=== PATIENT | female | born 1980 | race Caucasian/White ===

== ENCOUNTER 2016-06-16 16:42 | Outpatient (CLI) | payer MEDICAID ==
--- NOTE | 2016-06-16 17:29 | Non Stress Test Report ---
Non Stress Test Datetime Report Generated by CPN: 06/16/2016 17:28 DEMOGRAPHIC Test Number: 1 EGA NST: 35.2 INDICATION Indication for Study: Ordered by Provider MONITORING Monitor Explained: Monitor Explained; Test Explained; Patient Verbalized Understanding Time on Monitor: 06/16/2016 16:56 Time off Monitor: 06/16/2016 17:20 NST Duration: 24 NST INTERVENTIONS NST Interventions: PO Hydration; Reposition Patient Physician Notified NST: Dr. Sharif BABY A: [id number] BABY A Movement : Present Contraction Frequency : None FHR Baseline : 120 Accelerations : 15X15 Decelerations : None Variability : Moderate 6-25bpm NST Review: Meets Criteria for Reactive NST NST Review and Verified By : Juve Banks RNC NST Results: Reactive NST REPORT Report Trigger: Send Report
--- NOTE | 2016-06-22 09:18 | Antepartum Discharge Summary ---
Antepartum DC Datetime Report Generated by CPN: 06/22/2016 09:18 DIET/ACTIVITY/RESTRICTIONS Diet: Regular (06/16/2016 17:25:Kourtney Vitrano, RN) Activity: Normal Activity (06/16/2016 17:25:Kourtney Vitrano, RN) TEACHING/INSTRUCTIONS/REFERRALS Instructions Given To: Patient (06/16/2016 17:25:Kourtney Vitrano, RN) Instructions Understood: Patient Verbalized Understanding; Support Person Verbalized Understanding (06/16/2016 17:25:Kourtney Fitzpatrick RN) Referrals: None (06/16/2016 17:25:Kourtney Fitzpatrick RN) Educational Materials- Other: Kick Counts (06/16/2016 17:25:Kourtney Fitzpatrick RN) DISCHARGE INFORMATION Discharged AMA: No (06/16/2016 17:25:Kourtney Fitzpatrick RN) Discharge Date/Time: 06/16/2016 17:23 (06/16/2016 17:25:Kourtney Fitzpatrick RN) Discharged To: Home (06/16/2016 17:25:Kourtney Fitzpatrick RN) Discharge Provider Name: Dr. Sharif (06/16/2016 17:25:Kourtney Fitzpatrick RN) Discharge Method: Ambulatory (06/16/2016 17:25:Kourtney Fitzpatrick RN) Condition: Stable (06/16/2016 17:25:Kourtney Fitzpatrick RN) FOLLOW UP INFORMATION Follow Up With: [facility] (06/16/2016 17:25:Kourtney Fitzpatrick RN) Follow Up On: As Scheduled (06/16/2016 17:25:Kourtney Fitzpatrick RN) Follow Up Phone Number: [facility] - (06/16/2016 17:25:Kourtney Fitzpatrick RN)
--- NOTE | 2016-06-22 09:19 | L&D General Admission ---
General Admit Datetime Report Generated by CPN: 06/22/2016 09:19 INFORMATION Patient Age: 36 (06/16/2016 16:42:QS system process) EDC: 07/19/2016 00:00 (06/16/2016 16:59:Kourtney Fitzpatrick RN) : 3 (06/16/2016 16:59:Kourtney Fitzpatrick RN) Para: 1 (06/16/2016 16:59:Kourtney Fitzpatrick RN) Term: 1 (06/16/2016 16:59:Kourtney Fitzpatrick RN) : 0 (06/16/2016 16:59:Kourtney Fitzpatrick RN) Spontaneous Abortions: 1 (06/16/2016 16:59:Kourtney Fitzpatrick RN) Induced Abortions: 0 (06/16/2016 16:59:Kourtney Fitzpatrick RN) Livin (06/16/2016 16:59:Kourtney Fitzpatrick RN) Cesareans: 0 (06/16/2016 16:59:Kourtney Fitzpatrick RN) VBACs: 0 (06/16/2016 16:59:Kourtney Fitzpatrick RN) Ectopic: 0 (06/16/2016 16:59:Kourtneyjulia Fitzpatrick RN) Multiple Births: 0 (06/16/2016 16:59:Kourtney Fitzpatrick RN) Baby, Number in Womb: 1 (06/16/2016 16:59:Kourtney Fitzpatrick RN) CARE Primary Porcelain Enamel Laborer: [facility] (06/16/2016 16:59:Kourtney Fitzpatrick RN) Month of 1st Visit: 12/2015 (06/16/2016 16:59:Kourtney Fitzpatrick RN) Adequate Care: Yes (06/16/2016 16:59:Kourtney Fitzpatrick RN) Prepregnancy Weight (lb): 129 (06/16/2016 16:59:Kourtney Fitzpatrick RN) Prepregnancy Weight (kg): 58.6 (06/16/2016 16:59:QS system process) Height (in): 65 (06/16/2016 17:00:QS system process) ALLERGIES Medication Allergy: No (06/16/2016 16:59:Kourtney Fitzpatrick RN) Medication Allergies: No Known Allergies (06/16/2016) (06/16/2016 16:59:QS system process) Latex Allergy: No Latex Allergies (06/16/2016 16:59:Kourtney Fitzpatrick RN) Food Allergies: N/A (06/16/2016 16:59:Kourtney Fitzpatrick RN) Environmental Allergies: N/A (06/16/2016 16:59:Kourtney Fitzpatrick RN) COMMUNICATION Primary Language: Burundian (06/16/2016 16:59:Kourtney Fitzpatrick RN) Medical Tx Preferred Language: Burundian (06/16/2016 16:59:Kourtney Fitzpatrick RN) Communication Barrier(s): None (06/16/2016 16:59:Kourtney Fitzpatrick RN) DEMOGRAPHICS Address: [address] [place] [id number] (06/16/2016 16:42:QS system process) Zipcode: [address] (06/16/2016 16:42:QS system process) Home (06/16/2016 16:42:QS system process) N: [phone] (06/16/2016 16:42:QS system process) Next of Kin Name: TALIA PALACIOS (06/16/2016 16:42:QS system process) Next of Kin (06/16/2016 16:42:QS system process) Next of Kin Relationship: MO (06/16/2016 16:42:QS system process) Date of : 1980 (06/16/2016 16:42:QS system process) Marital Status: (06/16/2016 16:42:QS system process) Sex: Female (06/16/2016 16:42:QS system process) Race: (06/16/2016 16:42:QS system process) Ethnicity: Non- or (06/16/2016 16:42:QS system process) Episcopal: None (06/16/2016 16:42:QS system process) DRUG AND ALCOHOL USE Alcohol: No (06/16/2016 16:59:Kourtney Fitzpatrick RN) Cigarettes: Current Everyday Smoker. [phone] (06/16/2016 16:59:Kourtney Fitzpatrick RN) Marijuana: No (06/16/2016 16:59:Kourtney Fitzpatrick RN) Cocaine: No (06/16/2016 16:59:Kourtney Fitzpatrick RN) Other Illicit Drugs: No (06/16/2016 16:59:Kourtney Fitzpatrick RN) Other Illicit Drug Comments: Hx heroine use; On Subutex (06/16/2016 16:59:Kourtney Silvaano, RN) VACCINE HISTORY Influenza Vaccine: Yes (06/16/2016 16:59:Kourtney Fitzpatrick RN) Pneumococcal Vaccine: No (06/16/2016 16:59:Kourtney Fitzpatrick RN) Tetanus Vaccine: Yes (06/16/2016 16:59:Kourtney Fitzpatrick RN) Tdap Vaccine: Yes (06/16/2016 16:59:Kourtney Fitzpatrick RN) Hepatitis B Vaccine: Yes (06/16/2016 16:59:Kourtney Fitzpatrick RN) Maintenance Coordinator: [facility] (06/16/2016 16:59:Kourtney Fitzpatrick RN) Feeding Preference: Formula (06/16/2016 16:59:Kourtney Fitzpatrick RN) Circumcision: N/A (06/16/2016 16:59:Kourtney Fitzpatrick RN) Classes Attended: No (06/16/2016 16:59:Kourtney Fitzpatrick RN) Tubal Ligation: No (06/16/2016 16:59:Kourtney Fitzpatrick RN) Tubal Authorization Signed: N/A (06/16/2016 16:59:Kourtney Fitzpatrick RN) Consent: N/A (06/16/2016 16:59:Kourtney Fitzpatrick RN) Consent Signed: N/A (06/16/2016 16:59:Kourtney Fitzpatrick RN) Pain Management Plans: Epidural (06/16/2016 16:59:Kourtney Fitzpatrick RN) Plans for Labor and Delivery: None (06/16/2016 16:59:Kourtney Fitzpatrick RN) Support Person: Jaleel Garcia (06/16/2016 16:59:Kourtney Fitzpatrick RN) Support Person Relationship: (06/16/2016 16:59:Kourtney Fitzpatrick RN) Cultural/Spritual Practice: No (06/16/2016 16:59:Kourtney Fitzpatrick RN) Spir/Cult Dietary Needs: No (06/16/2016 16:59:Kourtney Fitzpatrick RN) LIVING SITUATION/DISCHARGE PLAN Living Arrangements: House (06/16/2016 16:59:Kourtney Fitzpatrick RN) Adequate Access to:: Electric; Heat; Refrigeration; Plumbing/Running water; Phone; Transportation (06/16/2016 16:59:Kourtney Fitzpatrick RN) WIC Program: Yes (06/16/2016 16:59:Kourtney Fitzpatrick RN) Discharge Assistant Speech Language Pathologist Person: (06/16/2016 16:59:Kourtney Fitzpatrick RN) Person to Help after Discharge: (06/16/2016 16:59:Kourtney Fitzpatrick RN) Currently Using Commun Resources: Yes (06/16/2016 16:59:Kourtney Fitzpatrick RN) Specify Current Resource Used: WIC, Medicaid (06/16/2016 16:59:Kourtney Fitzpatrick RN) Outside Agency/Energy Manager: No (06/16/2016 16:59:Kourtney Fitzpatrick RN) Car Seat for Discharge: Yes (06/16/2016 16:59:Kourtney Fitzpatrick RN) Adoption Requested: No (06/16/2016 16:59:Kourtney Fitzpatrick RN) Pt Contact w/ Post : N/A (06/16/2016 16:59:Kourtney Fitzpatrick RN) LABS RPR/VDRL: Nonreactive (06/16/2016 16:59:Kourtney Fitzpatrick RN) HIV Exposure Test: Negative (06/16/2016 16:59:Kourtney Fitzpatrick RN) OB/PREVIOUS HISTORY History of Previous : No (06/16/2016 16:59:Kourtney Fitzpatrick RN) History of Gestational Diabetes: No (06/16/2016 16:59:Kourtney Fitzpatrick RN) History of PIH: No (06/16/2016 16:59:Kourtney Fitzpatrick RN) History of Incompetent Cervix: No (06/16/2016 16:59:Kourtney Fitzpatrick RN) History of Placenta Previa/Abrup: No (06/16/2016 16:59:Kourtney Fitzpatrick RN) History of Macrosomia: No (06/16/2016 16:59:Kourtney Fitzpatrick RN) History of IUGR: No (06/16/2016 16:59:Kourtney Fitzpatrick RN) History of Hemorrhage: No (06/16/2016 16:59:Kourtney Fitzpatrick RN) History of Loss/Stillborn: No (06/16/2016 16:59:Kourtney Fitzpatrick RN) History of : No (06/16/2016 16:59:Kourtney Fitzpatrick RN) History of D (Rh) Sensitization: No (06/16/2016 16:59:Kourtney Fitzpatrick RN) History Recurrent Loss/Stillborn: No (06/16/2016 16:59:Kourtney Fitzpatrick RN) History Depression/PP Depression: No (06/16/2016 16:59:Kourtney Fitzpatrick RN) History of Uterine Anomaly/LOU: No (06/16/2016 16:59:Kourtney Fitzpatrick RN) History of Infertility: No (06/16/2016 16:59:Kourtney Fitzpatrick RN) History of ART Treatment: No (06/16/2016 16:59:Kourtney Fitzpatrick RN) History of LOU: No (06/16/2016 16:59:Kourtney Fitzpatrick RN) Comments Obstetrical History: G1: 2008 SAB 8 weeks G2: 2010 baby boy, 41 weeks, 24 hours labor, 7 lb 9 oz G3: Current; Marginal cord insertion, AMA, Subutex; Sees MFM (06/16/2016 16:59:Kourtney Fitzpatrick RN) MEDICAL HISTORY Med Hx Diabetes: No (06/16/2016 16:59:Kourtney Fitzpatrick RN) Med Hx Hypertension: No (06/16/2016 16:59:Kourtney Fitzpatrick RN) Med Hx Heart Disease: No (06/16/2016 16:59:Kourtney Fitzpatrick RN) Med Hx Autoimmune Disorder: No (06/16/2016 16:59:Kourtney Fitzpatrick RN) Med Hx Kidney Disease/UTI: No (06/16/2016 16:59:Korutney Fitzpatrick RN) Med Hx Neurologic/Epilepsy: No (06/16/2016 16:59:Kourtney Fitzpatrick RN) Med Hx Psychiatric Disorders: Yes (06/16/2016 16:59:Kourtney Fitzpatrick RN) Med Hx Hepatitis/Liver Disease: No (06/16/2016 16:59:Kourtney Fitzpatrick RN) Med Hx Varicosities/Phlebitis: No (06/16/2016 16:59:Kourtney Fitzpatrick RN) Med Hx Thyroid Dysfunction: No (06/16/2016 16:59:Kourtney Fitzpatrick RN) Med Hx Trauma/Violence: No (06/16/2016 16:59:Kourtney Fitzpatrick RN) Med Hx Blood Transfusion: No (06/16/2016 16:59:Kourtney Fitzpatrick RN) Med Hx Pulmonary (Asthma,TB): No (06/16/2016 16:59:Kourtney Fitzpatrick RN) Med Hx Breast: No (06/16/2016 16:59:Kourtney Fitzpatrick RN) Med Hx HEAD WAITER Surgery: No (06/16/2016 16:59:Kourtney Fitzpatrick RN) Med Hx Hospitalization/Surgery: No (06/16/2016 16:59:Kourtney Fitzpatrick RN) Med Hx Anesthetic Complications: No (06/16/2016 16:59:Kourtney Fitzpatrick RN) Med Hx Abnormal Pap Smear: Yes (06/16/2016 16:59:Kourtney Fitzpatrick RN) Other Medical Diseases: No (06/16/2016 16:59:Kourtney Fitzpatrick RN) Med Hx Significant Family Hx: No (06/16/2016 16:59:Kourtney Fitzpatrick RN) Details of Med/Surg Hx: Psychiatric: Anxiety/Depression, Hx heroine abuse Abnormal Pap: 1999, Treated with colpo (06/16/2016 16:59:Kourtney Fitpzatrick RN) INFECTIOUS HISTORY Inf Hx Gonorrhea: No (06/16/2016 16:59:Kourtney Fitzpatrick RN) Inf Hx Chlamydia: No (06/16/2016 16:59:Kourtney Fitzpatrick RN) Inf Hx Syphilis: No (06/16/2016 16:59:Kourtney Fitzpatrick RN) Inf Hx HIV/AIDS: No (06/16/2016 16:59:Kourtney Fitzpatrick RN) Inf Hx Human Papilloma Virus: No (06/16/2016 16:59:Kourtney Fitzpatrick RN) Inf Hx Pt/Partner Genital Herpes: No (06/16/2016 16:59:Kourtney Fitzpatrick RN) Inf Hx Tuberculosis/Exposure: No (06/16/2016 16:59:Kourtney Fitzpatrick RN) Inf Hx Hepatitis B,C: No (06/16/2016 16:59:Kourtney Fitzpatrick RN) Inf Hx Rash or Viral Illness: No (06/16/2016 16:59:Kourtney Fitzpatrick RN) GENETIC HISTORY Gen Hx Age >=35 at ADRIENNE: No (06/16/2016 16:59:Kourtney Fitzpatrick RN) Gen Hx Thalassemia: No (06/16/2016 16:59:Kourtney Fitzpatrick RN) Gen Hx Congenital Heart Defect: No (06/16/2016 16:59:Kourtney Fitzpatrick RN) Gen Hx Neural Tube Defect: No (06/16/2016 16:59:Kourtney Fitzpatrick RN) Gen Hx Down's Syndrome: No (06/16/2016 16:59:Kourtney Fitzpatrick RN) Gen Hx Raheem-Sachs: No (06/16/2016 16:59:Kourtney Fitzpatrick RN) Gen Hx Diann: No (06/16/2016 16:59:Kourtney Fitzpatrick RN) Gen Hx Familial Dysautonomia: No (06/16/2016 16:59:Kourtney Fitzpatrick RN) Gen Hx Sickle Cell Disease/Trait: No (06/16/2016 16:59:Kourtney Fitzpatrick RN) Gen Hx Hemophilia/Blood Disorder: No (06/16/2016 16:59:Kourtney Fitzpatrick RN) Gen Hx Muscular Dystrophy: No (06/16/2016 16:59:Kourtney Fitzpatrick RN) Gen Hx Cystic Fibrosis: No (06/16/2016 16:59:Kourtney Fitzpatrick RN) Gen Hx Huntingtons Chorea: No (06/16/2016 16:59:Kourtney Fitzpatrick RN) Gen Hx Mental Retardation/Autism: No (06/16/2016 16:59:Kourtney Fitzpatrick RN) Gen Hx Tested for Fragile X: No (06/16/2016 16:59:Kourtney Fitzpatrick RN) Gen Hx Other Inher/Chromosomal: No (06/16/2016 16:59:Kourtney Fitzpatrick RN) Gen Hx Maternal Metabolic DO: No (06/16/2016 16:59:Kourtney Fitzpatrick RN) Gen Hx Pt Father or FOB Defect: No (06/16/2016 16:59:Kourtney Fitzpatrick RN) Gen Hx Other Genetic History: No (06/16/2016 16:59:Kourtney Fitzpatrick RN) Gen Hx Drugs/Meds since LMP: No (06/16/2016 16:59:Kourtney Fitzpatrick RN)
--- NOTE | 2016-06-22 09:19 | L&D Flow Sheet ---
LD Flowsheet Datetime Report Generated by CPN: 06/22/2016 09:19 Datetime: 06/16/2016 17:23 Patient Care Comments: Pt ambulating off unit in stable condition (Kourtney Vitrano, RN) Datetime: 06/16/2016 17:21 Teaching Instructional Method: Verbal; Written; Patient Instructed; Verbalized Understanding (Kourtney Ricardoano, RN) Teaching Comments: Reviewed and signed kick counts. Pt encouraged to return for regular contractions, leaking, bleeding, decreased FM. Encouraged to keep f/u appointments. Pt verbalized understanding and denied needs. (Kourtney Vitrano, RN) Datetime: 06/16/2016 17:20 Uterine Activity Monitor Mode: External; Palpation (Kourtney Vitrano, RN) Frequency (min): None (Kourtney Vitrano, RN) Resting Tone (Palpate): Relaxed (Kourtney Vitrano, RN) Contraction Comments: Pt denies (Kourtney Vitrano, RN) Assessment A Monitor Mode: External US (Kourtney Vitrano, RN) FHR Baseline Rate : 120 (Kourtney Vitrano, RN) Variability: Moderate 6-25 bpm (Kourtney Vitrano, RN) Accelerations: 15X15 (Kourtney Vitrano, RN) Decelerations: None (Kourtney Vitrano, RN) Communication Communication: Provider Orders Received; Call/Page Placed to Provider (Kourtney Ricardoano, RN) Communication Comments: Call to Dr. Sharif. Report given to include EGA 35.2, , pt history, pt to unit for repeat NST. Reviewed toco tracing, FHTs, pt denies complaints. Orders received to d/c pt home for reactive NST. (Kourtney Vitrano, RN) Datetime: 06/16/2016 17:04 Monitor Interventions for FHR: Ultrasound Adjusted (Kourtney Vitrano, RN) Datetime: 06/16/2016 16:56 Vital Signs NBP Sys/Juany/Mean (mmHg): 94 (QS system process) : 44 (QS system process) : 64 (QS system process) Pulse: 70 (QS system process) Respirations: 16 (Kourtney Vitrano, RN) Patient Care Patient Position/Activity: Right Lateral (Kourtney Fitzpatrick RN) I/O Interventions: Popsicle; Clear Liquids Given (Kourtney Fitzpatrick RN) Teaching Instructional Method: Verbal; Patient Instructed; Verbalized Understanding (Kourtney Fitzpatrick RN) Plan of Care: Plan of Care Discussed (Kourtney Fitzpatrick RN) Unit Routine: [place] to Room; Call Banks; Bed; Monitoring; Safety/Fall Risk Prevention; Bathroom Privileges (Kourtney Fitzpatrick RN) Datetime: 06/16/2016 16:55 Patient Care Comments: Pt to unit from [facility] for repeat NST. Denies concerns or complaints at this time. (Kourtney Fitzpatrick RN)
--- NOTE | 2016-06-22 09:20 | L&D Discharge Summary ---
OB Discharge Summary Datetime Report Generated by CPN: 06/22/2016 09:19 DISCHARGE DIAGNOSIS Diagnosis/Symptoms: Other Diagnoses/Symptoms Other: Reactive NST Reviewed and signed kick counts. Pt encouraged to return for regular contractions, leaking, bleeding, decreased FM. Encouraged to keep f/u appointments. Pt verbalized understanding and denied needs. Gestation: 35.2 Number of Babies in Womb: 1 Parity: 1 DIET/ACTIVITY/RESTRICTIONS Diet: Regular Activity: Normal Activity TEACHING/INSTRUCTIONS/REFERRALS Instructions Given To: Patient Instructions Understood: Patient Verbalized Understanding; Support Person Verbalized Understanding Referrals: None Educational Materials- Other: Kick Counts DISCHARGE INFORMATION Discharged AMA: No Discharge Date/Time: 06/16/2016 17:23 Discharged To: Home Discharge Provider Name: Dr. Sharif Discharge Method: Ambulatory Condition: Stable FOLLOW UP INFORMATION Follow Up With: [facility] Follow Up On: As Scheduled Follow Up Phone Number: [facility] -
== END 2016-06-16 17:23 | disposition home or self-care (01) ==
LOC: LC 16:42
PROVIDERS: ATTEND Obstetrics & Gynecology
PROC: 4A1HXCZ Monitoring of Products of Conception, Cardiac Rate, External Approach (ICD-10-PCS; principal; 2016-06-16)
DX: Z34.93 Encounter for supervision of normal pregnancy, unspecified, third trimester (principal); Z3A.37 37 weeks gestation of pregnancy
CPT/HCPCS: 59025

== ENCOUNTER 2016-07-02 10:30 | Outpatient (CLI) | payer MEDICAID | END 2016-07-02 11:03 | disposition home or self-care (01) | LOC: LC 10:30 | PROVIDERS: ATTEND Obstetrics & Gynecology | PROC: 4A1HXCZ Monitoring of Products of Conception, Cardiac Rate, External Approach (ICD-10-PCS; principal; 2016-07-02) | DX: O09.523 Supervision of elderly multigravida, third trimester (principal); Z3A.38 38 weeks gestation of pregnancy | CPT/HCPCS: 59025 ==

== ENCOUNTER 2016-07-09 14:59 | Outpatient (CLI) | payer MEDICAID ==
--- NOTE | 2016-07-09 15:48 | Non Stress Test Report ---
Non Stress Test Datetime Report Generated by CPN: 07/09/2016 15:48 DEMOGRAPHIC Test Number: 3 EGA NST: 38.4 EGA NST: 37.4 INDICATION Indication for Study: Ordered by Provider Indication for Study: Ordered by Provider MONITORING Monitor Explained: Monitor Explained; Test Explained; Patient Verbalized Understanding Monitor Explained: Monitor Explained; Test Explained; Patient Verbalized Understanding Time on Monitor: 07/09/2016 15:09 Time on Monitor: 07/02/2016 10:39 Time off Monitor: 07/09/2016 15:41 Time off Monitor: 07/02/2016 10:59 NST Duration: 32 NST Duration: 20 NST INTERVENTIONS NST Interventions: PO Hydration; Reposition Patient NST Interventions: PO Hydration; Reposition Patient Physician Notified NST: SusieMAIA Chavez Physician Notified NST: Fritz Cristina BABY A: [id number] BABY A Movement : Present Movement : Present Contraction Frequency : Occasional Contraction Frequency : irr FHR Baseline : 130 FHR Baseline : 135 Accelerations : 15X15 Accelerations : 15X15 Decelerations : None Decelerations : None Variability : Moderate 6-25bpm Variability : Moderate 6-25bpm NST Review: Meets Criteria for Reactive NST NST Review: Meets Criteria for Reactive NST NST Review and Verified By : Coby Humphries RN NST Results: Reactive NST Results: Reactive NST REPORT Report Trigger: Send Report
== END 2016-07-09 15:43 | disposition home or self-care (01) ==
LOC: LC 14:59
PROVIDERS: ATTEND Obstetrics & Gynecology
PROC: 4A1HXCZ Monitoring of Products of Conception, Cardiac Rate, External Approach (ICD-10-PCS; principal; 2016-07-09)
DX: O09.523 Supervision of elderly multigravida, third trimester (principal); Z3A.38 38 weeks gestation of pregnancy
CPT/HCPCS: 59025

== ENCOUNTER 2016-07-20 18:12 | Inpatient (IN) | payer MEDICAID ==
[2016-07-20 18:48] LABS: APPEARANCE,URINE CLOUDY; BILIRUBIN,URINE NEGATIVE (NEGATIVE); GLUCOSE, URINE NEGATIVE (NEGATIVE); KETONES,URINE NEGATIVE (NEGATIVE); LEUKOCYTE ESTERASE,URINE NEGATIVE (NEGATIVE); NITRITE,URINE NEGATIVE (NEGATIVE); PROTEIN,URINE NEGATIVE (NEGATIVE); URINE SPECIFIC GRAVITY 1.015; UROBILINOGEN,URINE NEGATIVE mg/dL (<2.0)
[2016-07-20 19:04] LABS: URINE BARBITURATES SCREEN NEGATIVE; URINE METHADONE SCREEN NEGATIVE; URINE OPIATES LOW NEGATIVE; URINE PHENCYCLIDINE SCREEN NEGATIVE
[2016-07-20 19:40] LABS: ABSOLUTE BASOPHILS # (AUTO) 0.1 10^3/uL (0.0-0.2); ABSOLUTE EOSINOPHILS # (AUTO) 0.1 10^3/uL (0.0-0.6); ABSOLUTE LYMPHOCYTES (AUTO) 2.8 10^3/uL (0.5-4.7); ABSOLUTE MONOCYTES (AUTO) 0.7 10^3/uL (0.1-1.4); ABSOLUTE NEUT (AUTO) 9.6 10^3/uL (1.7-8.2); BASOPHILS % (AUTO) 0.4 % (0-2); HEMOGLOBIN 10.7 g/dL (12.0-15.5); HGB HCT DIFFERENCE 0.1; MEAN CORPUSCULAR HEMOGLOBIN 28.8 pg (27.0-33.4); MEAN CORPUSCULAR HGB CONC 33.4 g/dL (32.0-36.0); MEAN CORPUSCULAR VOLUME 86 fl (80-97); MONOCYTES % (AUTO) 5.6 % (3-13); RED CELL DISTRIBUTION WIDTH 13.5 % (11.5-14.0); WHITE BLOOD COUNT 13.3 10^3/uL (4.0-10.5)
--- NOTE | 2016-07-20 20:00 | L&D Flow Sheet ---
LD Flowsheet Datetime Report Generated by CPN: 07/20/2016 20:00 Datetime: 07/20/2016 19:53 Level of Consciousness: Fully Conscious ([facility], ) DTR's/Clonus: DTRs 2+; No Clonus ([facility], RN) Headache: Denies ([facility], ) Breath Sounds, Left: Clear and Equal ([facility], ) Breath Sounds, Right: Clear and Equal ([facility], RN) Nausea/Vomiting: Denies ([facility], ) RUQ Epigastric Pain: Denies ([facility], ) Datetime: 07/20/2016 19:33 NBP Sys/Juany/Mean (mmHg): 107 (QS system process) : 58 (QS system process) : 77 (QS system process) Pulse: 97 (QS system process) LaborFlag: Labor (QS system process) Datetime: 07/20/2016 19:18 Patient Care Comments: Report given to Peña Bahena . Care relinquished at this time. (Adilia Marlesliefka, RN) Datetime: 07/20/2016 19:13 IV/Blood Work: Labs Drawn (Adilia Marhefka, RN) Datetime: 07/20/2016 19:00 Monitor Mode: External; Palpation (Adilia Marhefka, RN) Frequency (min): 3-6 (Adilia Marhefka, RN) Quality: Mild (Adilia Marhefka, RN) Duration (sec): 60-170 (Adilia Marhefka, RN) Resting Tone (Palpate): Relaxed (Adilia Marhefka, RN) Monitor Mode: External US (Adilia Marhefka, RN) FHR Baseline Rate : 135 (Adilia Marhefka, RN) FHR Baseline Changes: No Baseline Change (Adilia Marhefka, RN) Variability: Moderate 6-25 bpm (Adilia Marhefka, RN) Accelerations: 15X15 (Adilia Marhefka, RN) Decelerations: None (Adilia Marhefka, RN) Datetime: 07/20/2016 18:47 Unit Routine: Consents Signed (Adilia Marhefka, RN) Datetime: 07/20/2016 18:43 Pain Scale: 0 (Adilia Humphries RN) Pain Presence: None/Denies (Adilia Humphries RN) Pain Type: N/A (Adilia Humphries RN) Pain Goal: 0 (Adilia Humphries RN) Pain Relief Measures: Comfort Measures (Adilia Humphries RN) Membrane Status: Intact (Adilia Humphries RN) Vaginal Bleeding: None (Adilia Humphries RN) Level of Consciousness: Fully Conscious (Adilia Humphries RN) DTR's/Clonus: DTRs 2+; No Clonus (Adilia Humphries RN) Headache: Denies (Adilia Humphries RN) Breath Sounds, Left: Clear and Equal (Adilia Humphries RN) Breath Sounds, Right: Clear and Equal (Adilia Humphries RN) Nausea/Vomiting: Denies (Adilia Humphries RN) RUQ Epigastric Pain: Denies (Adilia Humphries RN) LaborFlag: Labor (QS system process) Datetime: 07/20/2016 18:39 Patient Position/Activity: Left Lateral; Semi-Fowlers (Adilia Humphries RN) Instructional Method: Verbal; Patient Instructed; Verbalized Understanding (Adilia Humphries RN) Plan of Care: Plan of Care Discussed (Adilia Humphries RN) Unit Routine: [place] to Room; Call Banks; Bed; Visiting Policy; Waiting Areas; Unit Personnel; Monitoring; Bathroom Privileges (Adilia Humphries RN) Labor/Induction: Labor Stages; Cervical Ripening (Adilia Humphries RN)
[2016-07-20] MEDS ORDERED: DINOPROSTONE 10 MG VAGINAL INSERT.SR PV ONE (20:12)
[2016-07-20] MEDS ORDERED: DINOPROSTONE 10 MG VAGINAL INSERT.SR ONE (20:14)
[2016-07-20] MEDS ORDERED: MAG HYDROX/AL HYDROX/SIMETH SUSP 30 ML UDCUP PO PRN (20:52)
[2016-07-20] MEDS ORDERED: ACETAMINOPHEN 325 MG TABLET PO PRN (20:52)
[2016-07-20] MEDS ORDERED: ZOLPIDEM TARTRATE 5 MG TABLET PO SCH (22:00)
--- NOTE | 2016-07-20 22:00 | L&D Flow Sheet ---
LD Flowsheet Datetime Report Generated by CPN: 07/20/2016 22:00 Datetime: 07/20/2016 21:33 NBP Sys/Juany/Mean (mmHg): 121 (QS system process) : 71 (QS system process) : 90 (QS system process) Pulse: 71 (QS system process) LaborFlag: Labor (QS system process) Datetime: 07/20/2016 21:03 NBP Sys/Juany/Mean (mmHg): 123 (QS system process) : 56 (QS system process) : 81 (QS system process) Pulse: 77 (QS system process) LaborFlag: Labor (QS system process) Datetime: 07/20/2016 20:33 NBP Sys/Juany/Mean (mmHg): 114 (QS system process) : 55 (QS system process) : 76 (QS system process) Pulse: 74 (QS system process) LaborFlag: Labor (QS system process) Datetime: 07/20/2016 20:30 Monitor Mode: External; Palpation (Sue Bahena RN) Frequency (min): 5-9 (Sue Bahena RN) Quality: Mild (Sue Bahena, RN) Duration (sec): 80-120 (Sue Bahena, RN) Resting Tone (Palpate): Relaxed (Sue Bahena RN) Monitor Mode: External US (Sue Bahena, RN) FHR Baseline Rate : 125 (Sue Bahena, RN) Variability: Moderate 6-25 bpm (Sue Bahena, RN) Accelerations: 15X15 (Sue Bahena, RN) Decelerations: None (Sue Bahena, RN) Datetime: 07/20/2016 20:21 Cervical Ripening Agents: Cervidil (Sue Field, RN) Datetime: 07/20/2016 20:20 Dilatation (cm): 1.0 (Sue Bahena, RN) Effacement (%): 50 (Sue Bahena, RN) Station: -3 (Sue Bahena, RN) Exam by: RN (Sue Bahena, RN) Datetime: 07/20/2016 20:07 I/O Interventions: Up to BR (Sue Field, RN) Datetime: 07/20/2016 20:02 NBP Sys/Juany/Mean (mmHg): 121 (QS system process) : 77 (QS system process) : 94 (QS system process) Pulse: 75 (QS system process) LaborFlag: Labor (QS system process) Datetime: 07/20/2016 20:00 Monitor Mode: External; Palpation (Sue Bahena RN) Frequency (min): 5-10.5 (Sue Bahena RN) Quality: Mild (Sue Bahena RN) Duration (sec): 100-140 (Sue Bahena RN) Resting Tone (Palpate): Relaxed (Sue Bahena RN) Monitor Mode: External US (Sue Bahena RN) FHR Baseline Rate : 125 (Sue Bahena RN) Variability: Moderate 6-25 bpm (Sue Bahena RN) Accelerations: 15X15 (Sue Bahena RN) Decelerations: None (Seu Bahena RN)
[2016-07-20] MEDS ORDERED: ZOLPIDEM TARTRATE 5 MG TABLET ONE (22:28)
[2016-07-21] MEDS: RINGERS SOLUTION,LACTATED 1,000 ML IV PRN ×3 (00:01→10:17)
[2016-07-21] MEDS ORDERED: NICOTINE 7 MG/24 HR PATCH.TD24 ONE (00:52)
--- NOTE | 2016-07-21 08:01 | L&D Flow Sheet ---
LD Flowsheet Datetime Report Generated by CPN: 07/21/2016 08:00 Datetime: 07/21/2016 07:43 Level of Consciousness: Fully Conscious (Adilia Marhefka, RN) DTR's/Clonus: DTRs 2+; No Clonus (Adilia Marhefka, RN) Headache: Denies (Adilia Marhefka, RN) Breath Sounds, Left: Clear and Equal (Adilia Marhefka, RN) Breath Sounds, Right: Clear and Equal (Adilia Marhefka, RN) Nausea/Vomiting: Denies (Adilia Marhefka, RN) RUQ Epigastric Pain: Denies (Adilia Marhefka, RN) Datetime: 07/21/2016 07:30 Monitor Mode: External (Adilia Marhefka, RN) Frequency (min): 2-5 (Adilia Marhefka, RN) Quality: Mild (Adilia Marhefka, RN) Duration (sec): 40-110 (Adilia Marhefka, RN) Resting Tone (Palpate): Relaxed (Adilia Marhefka, RN) Monitor Mode: External US (Adilia Marhefka, RN) FHR Baseline Rate : 130 (Adilia Marhefka, RN) FHR Baseline Changes: No Baseline Change (Adilia Marhefka, RN) Variability: Moderate 6-25 bpm (Adilia Marhefka, RN) Accelerations: 15X15 (Adilia Marhefka, RN) Decelerations: None (Adilia Marhefka, RN) Datetime: 07/21/2016 07:29 NBP Sys/Juany/Mean (mmHg): 107 (QS system process) : 59 (QS system process) : 75 (QS system process) Pulse: 67 (QS system process) Respirations: 16 (Adilia Humphries RN) Pain Scale: 0 (Adilia Humphries RN) Pain Presence: None/Denies (Adilia Humphries RN) Pain Type: N/A (Adilia Humphries RN) Pain Goal: 0 (Adilia Humphries RN) Pain Relief Measures: Comfort Measures (Adilia Marhefka, RN) LaborFlag: Labor (QS system process) Datetime: 07/21/2016 07:20 I/O Interventions: Up to BR (Adilia Marhefka, RN) Datetime: 07/21/2016 07:19 Communication: Report Given to @ R.Marhefka, RN; care relinquished at this time. (Sue Field, RN) Datetime: 07/21/2016 07:00 Monitor Mode: External (Adilia Marhefka, RN) Frequency (min): 2-6 (Adilia Marhefka, RN) Quality: Mild (Adilia Marhefka, RN) Duration (sec): 40-80 (Adilia Marhefka, RN) Resting Tone (Palpate): Relaxed (Adilia Marhefka, RN) Monitor Mode: External US (Adilia Marhefka, RN) FHR Baseline Rate : 135 (Adilia Marhefka, RN) FHR Baseline Changes: No Baseline Change (Adilia Marhefka, RN) Variability: Moderate 6-25 bpm (Adilia Marhefka, RN) Accelerations: 15X15 (Adilia Marhefka, RN) Decelerations: None (Adilia Marhefka, RN) Datetime: 07/21/2016 06:30 Monitor Mode: External; Palpation (Sue Field, RN) Frequency (min): 2-6 (Sue Field, RN) Quality: Mild/Moderate (Sue Field, RN) Duration (sec): 50-80 (Sue Field, RN) Resting Tone (Palpate): Relaxed (Sue Field, RN) Monitor Mode: External US (Sue Field, RN) FHR Baseline Rate : 130 (Sue Field, RN) Variability: Moderate 6-25 bpm (Sue Field, RN) Accelerations: 10X10 (Sue Field, RN) Decelerations: Variable (Sue Field, RN) Datetime: 07/21/2016 06:02 I/O Interventions: Up to BR (Sue Field, RN) Datetime: 07/21/2016 06:00 Monitor Mode: External; Palpation (Sue Field, RN) Frequency (min): 2-4 (Sue Field, RN) Quality: Mild/Moderate (Sue Field, RN) Duration (sec): 60-70 (Sue Field, RN) Resting Tone (Palpate): Relaxed (Sue Field, RN) Monitor Mode: External US (Sue Field, RN) FHR Baseline Rate : 130 (Sue Field, RN) Variability: Moderate 6-25 bpm (Sue Field, RN) Accelerations: 15X15 (Sue Field, RN) Decelerations: Variable (Sue Field, RN) Datetime: 07/21/2016 05:30 Monitor Mode: External; Palpation (Sue Field, RN) Frequency (min): 2-6 (Sue Field, RN) Quality: Mild/Moderate (Sue Field, RN) Duration (sec): 60-70 (Sue Field, RN) Resting Tone (Palpate): Relaxed (Sue Field, RN) Monitor Mode: External US (Sue Field, RN) FHR Baseline Rate : 125 (Sue Field, RN) Variability: Moderate 6-25 bpm (Sue Field, RN) Accelerations: 15X15 (Sue Field, RN) Decelerations: Variable (Sue Field, RN) Datetime: 07/21/2016 05:00 Monitor Mode: External; Palpation (Sue Field, RN) Frequency (min): x1 (Sue Field, RN) Quality: Mild/Moderate (Sue Field, RN) Duration (sec): 70 (Sue Field, RN) Resting Tone (Palpate): Relaxed (Sue Field, RN) Monitor Mode: External US (Sue Field, RN) FHR Baseline Rate : 130 (Sue Field, RN) Variability: Moderate 6-25 bpm (Sue Field, RN) Accelerations: 10X10 (Sue Field, RN) Decelerations: None (Sue Field, RN) Datetime: 07/21/2016 04:38 I/O Interventions: Up to BR (Sue Field, RN) Datetime: 07/21/2016 04:30 Monitor Mode: External; Palpation (Sue Field, RN) Frequency (min): 3-4 (Sue Field, RN) Quality: Mild/Moderate (Sue Field, RN) Duration (sec): 60-70 (Sue Field, RN) Resting Tone (Palpate): Relaxed (Sue Field, RN) Monitor Mode: External US (Sue Field, RN) FHR Baseline Rate : 125 (Sue Field, RN) Variability: Moderate 6-25 bpm (Sue Field, RN) Accelerations: 15X15 (Sue Field, RN) Decelerations: None (Sue Field, RN) Datetime: 07/21/2016 04:00 Monitor Mode: External; Palpation (Sue Field, RN) Frequency (min): 2-4 (Sue Field, RN) Quality: Mild/Moderate (Sue Field, RN) Duration (sec): 60-100 (Sue Field, RN) Resting Tone (Palpate): Relaxed (Sue Field, RN) Monitor Mode: External US (Sue Field, RN) FHR Baseline Rate : 130 (Sue Field, RN) Variability: Moderate 6-25 bpm (Sue Field, RN) Accelerations: 10X10 (Sue Field, RN) Decelerations: None (Sue Field, RN) Datetime: 07/21/2016 03:34 I/O Interventions: Up to BR (Sue Field, RN) Datetime: 07/21/2016 03:30 Monitor Mode: External; Palpation (Sue Field, RN) Frequency (min): 3-6 (Sue Field, RN) Quality: Mild/Moderate (Sue Field, RN) Duration (sec): 60-80 (Sue Field, RN) Resting Tone (Palpate): Relaxed (Sue Field, RN) Monitor Mode: External US (Sue Field, RN) FHR Baseline Rate : 130 (Sue Field, RN) Variability: Moderate 6-25 bpm (Sue Field, RN) Accelerations: 15X15 (Sue Field, RN) Decelerations: None (Sue Field, RN) Datetime: 07/21/2016 03:00 Monitor Mode: External; Palpation (Use Field, RN) Frequency (min): 2-5.5 (Sue Field, RN) Quality: Mild/Moderate (Sue Field, RN) Duration (sec): 60-80 (Sue Field, RN) Resting Tone (Palpate): Relaxed (Sue Field, RN) Monitor Mode: External US (Sue Field, RN) FHR Baseline Rate : 130 (Sue Field, RN) Variability: Moderate 6-25 bpm (Sue Field, RN) Accelerations: 15X15 (Sue Field, RN) Decelerations: None (Sue Field, RN) Datetime: 07/21/2016 02:30 Monitor Mode: External; Palpation (Sue Field, RN) Frequency (min): 3-4 (Sue Field, RN) Quality: Mild/Moderate (Sue Field, RN) Duration (sec): 60-80 (Sue Field, RN) Resting Tone (Palpate): Relaxed (Sue Field, RN) Monitor Mode: External US (Sue Field, RN) FHR Baseline Rate : 130 (Sue Field, RN) Variability: Moderate 6-25 bpm (Sue Field, RN) Accelerations: 15X15 (Sue Field, RN) Decelerations: None (Sue Field, RN) Datetime: 07/21/2016 02:18 I/O Interventions: Up to BR (Sue Field, RN) Datetime: 07/21/2016 02:00 Monitor Mode: External; Palpation (Sue Field, RN) Frequency (min): 3.5-4 (Sue Field, RN) Quality: Mild/Moderate (Sue Field, RN) Duration (sec): 60-80 (Sue Field, RN) Resting Tone (Palpate): Relaxed (Sue Field, RN) Monitor Mode: External US (Sue Field, RN) FHR Baseline Rate : 130 (Sue Field, RN) Variability: Moderate 6-25 bpm (Sue Field, RN) Accelerations: 10X10 (Sue Field, RN) Decelerations: None (Sue Field, RN) Datetime: 07/21/2016 01:30 Monitor Mode: External; Palpation (Sue Field, RN) Frequency (min): 3.5-4 (Sue Field, RN) Quality: Mild/Moderate (Sue Field, RN) Duration (sec): 50-60 (Sue Field, RN) Resting Tone (Palpate): Relaxed (Sue Field, RN) Monitor Mode: External US (Sue Field, RN) FHR Baseline Rate : 125 (Sue Field, RN) Variability: Moderate 6-25 bpm (Sue Field, RN) Accelerations: 15X15 (Sue Field, RN) Decelerations: None (Sue Field, RN) Datetime: 07/21/2016 01:02 NBP Sys/Juany/Mean (mmHg): 130 (QS system process) : 82 (QS system process) : 96 (QS system process) Pulse: 79 (QS system process) LaborFlag: Labor (QS system process) Datetime: 07/21/2016 01:00 Monitor Mode: External; Palpation (Sue Bahena, TAMARA) Frequency (min): 3-4 (Sue Bahena RN) Quality: Mild/Moderate (Sue Bahena RN) Duration (sec): 80-140 (Sue Bahena, RN) Resting Tone (Palpate): Relaxed (Sue Bahena RN) FHR Baseline Changes: Unable to Determine (Sue Bahena RN) Comments: Patient sitting straight up in bed (Sue Bahena RN) Datetime: 07/21/2016 00:35 Communication Comments: Informed Kole patient is requesting a cigarette and questioning her Subutex; orders received for a nicotene patch now and methadone in AM (Sue Bahena, RN) Datetime: 07/21/2016 00:30 Monitor Mode: External; Palpation (Sue Bahena, RN) Frequency (min): 4 (Sue Bahena, RN) Quality: Mild/Moderate (Sue Bahena, RN) Duration (sec): 60-100 (Sue Bahena, RN) Resting Tone (Palpate): Relaxed (Seu Bahena, RN) FHR Baseline Changes: Unable to Determine (Sue Bahena, RN) Comments: Patient sitting straight up in bed (Sue Bahena, RN) Datetime: 07/21/2016 00:03 IV/Blood Work: IV Infusing per Order; New IV Bag Hung; IV Bag Number @ 2 (Sue Bahena, RN) Datetime: 07/21/2016 00:00 Monitor Mode: External; Palpation (Sue Field, RN) Frequency (min): 3-3.5 (Sue Field, RN) Quality: Mild/Moderate (Sue Field, RN) Duration (sec): 50-70 (Sue Field, RN) Resting Tone (Palpate): Relaxed (Sue Field, RN) Monitor Mode: External US (Sue Field, RN) FHR Baseline Rate : 125 (Sue Field, RN) Variability: Moderate 6-25 bpm (Sue Field, RN) Accelerations: 15X15 (Sue Field, RN) Decelerations: None (Sue Field, RN) Datetime: 07/20/2016 23:54 Patient Care Comments: Patient sitting straight up in bed (Sue Field, RN) Datetime: 07/20/2016 23:43 I/O Interventions: Up to BR (Sue Field, RN) Datetime: 07/20/2016 23:00 Monitor Mode: External; Palpation (Sue Field, RN) Frequency (min): x1 (Sue Field, RN) Quality: Mild/Moderate (Sue Field, RN) Duration (sec): 80 (Sue Field, RN) Resting Tone (Palpate): Relaxed (Sue Field, RN) Monitor Mode: External US (Sue Field, RN) FHR Baseline Rate : 125 (Sue Field, RN) Variability: Moderate 6-25 bpm (Sue Field, RN) Accelerations: 15X15 (Sue Field, RN) Decelerations: None (Sue Field, RN) Datetime: 07/20/2016 22:30 Monitor Mode: External; Palpation (Sue Field, RN) Frequency (min): 6.5-7.5 (Sue Field, RN) Quality: Mild (Sue Field, RN) Duration (sec): 80-130 (Sue Field, RN) Resting Tone (Palpate): Relaxed (Sue Field, RN) Monitor Mode: External US (Sue Bahena, RN) FHR Baseline Rate : 125 (Sue Field, RN) Variability: Moderate 6-25 bpm (Sue Field, RN) Accelerations: 15X15 (Sue Field, RN) Decelerations: None (Sue Field, RN) Datetime: 07/20/2016 22:29 Analgesics/Sedatives: Ambien (mg) @ 10 (Sue Bahena, RN) Datetime: 07/20/2016 22:03 NBP Sys/Juany/Mean (mmHg): 120 (QS system process) : 70 (QS system process) : 89 (QS system process) Pulse: 70 (QS system process) LaborFlag: Labor (QS system process) Datetime: 07/20/2016 22:00 Monitor Mode: External; Palpation (Sue Bahena RN) Frequency (min): 5.5-9.5 (Sue Bahena RN) Quality: Mild (Sue Bahena RN) Duration (sec): 90-110 (Sue Bahena RN) Resting Tone (Palpate): Relaxed (Sue Bahena RN) Monitor Mode: External US (Sue Bahena RN) FHR Baseline Rate : 125 (Sue Bahena RN) Variability: Moderate 6-25 bpm (Sue Bahena RN) Accelerations: 15X15 (Sue Bahena RN) Decelerations: None (Sue Bahena RN)
[2016-07-21] MEDS ORDERED: OXYTOCIN/NORMAL SALINE 0 UNIT/0 ML RTUINJ ONE (09:44)
--- NOTE | 2016-07-21 10:01 | L&D Flow Sheet ---
LD Flowsheet Datetime Report Generated by CPN: 07/21/2016 10:00 Datetime: 07/21/2016 08:28 Patient Care Comments: Monitors removed for patient to shower and eat. (Adilia Marhefka, RN) Datetime: 07/21/2016 08:26 Medication Comments: Cervidil removed (Adilia Marhefka, RN) Datetime: 07/21/2016 08:00 Monitor Mode: External (Adilia Humphries RN) Frequency (min): Irregular (Adilia Humphries RN) Quality: Mild (Adilia Humphries RN) Duration (sec): 60-100 (Adilia Humphries RN) Resting Tone (Palpate): Relaxed (Adilia Humphries RN) Monitor Mode: External US (Adilia Humphries RN) FHR Baseline Rate : 140 (Adilia Humphries RN) FHR Baseline Changes: No Baseline Change (Adilia Humphries RN) Variability: Moderate 6-25 bpm (Adilia Humphries RN) Accelerations: 15X15 (Adilia Humphries RN) Decelerations: Variable (Adilia Humphries RN)
[2016-07-21] MEDS ORDERED: OXYTOCIN/NORMAL SALINE 1,000 ML IV PRN ×2 (10:05→18:17)
[2016-07-21] MEDS: NICOTINE 7 MG/24 HR PATCH.TD24 TD SCH (10:22)
--- NOTE | 2016-07-21 10:32 | L&D Progress Notes ---
PROGRESS NOTES Datetime Report Generated by CPN: 07/21/2016 10:32 PROGRESS NOTE Procedures: Artificial ROM Plan: Continue Present Management; Induction Informed Consent Obtained: Vaginal Delivery; Section Delivery; Induction of Labor; Risks, Benefits and Alternatives Discussed Vital Signs : Reviewed Comment: 36 yo here for induction of labor after cervidil last night EDC 07/19/16 ega 40.2 phx- AMA, marginal insertion, history of heroin and opoid use, Anxiety mhx- asthma abdomen nontender FHTs reactive/ cat 1 pt extremely anxious not on meds currently taking subutex 8 -12 mg po daily spouse to get meds from home to be verified by pharmacy for administration at bedside VAGINAL EXAM Dilatation: 2 Effacement: 80 Station: -1 MEMBRANES Membranes: Ruptured Amniotic Fluid Color: Clear FETUS A FHR - Baseline: 130 Monitoring: External US Variability: Moderate 6-25bpm Accelerations: 15X15 Decelerations: None FHR Category: Category I : 40.2 SIGNATURE SIGNATURE: [id number] SIGNATURE: [id number] SIGNATURE: [id number] Assignment: Swapna Webster MD Signature: with User ID: [email or web address] : with User ID: [email or web address]
[2016-07-21] MEDS ORDERED: EPHEDRINE SULFATE INJ 50 MG/1 ML AMPULE ONE (10:34)
[2016-07-21] MEDS ORDERED: BUPIVACAINE HCL 0.25 % INJ/PF (2.5 MG/1 ML) 30 ML VIAL ONE (10:34)
[2016-07-21] MEDS ORDERED: FENTANYL/BUPIVACAINE/NS/PF 200 MCG/100 ML RTUINJ EPI ONE (10:34)
--- NOTE | 2016-07-21 12:01 | L&D Flow Sheet ---
LD Flowsheet Datetime Report Generated by CPN: 07/21/2016 12:00 Datetime: 07/21/2016 11:50 Patient Position/Activity: Right Lateral; Semi-Fowlers (Adilia Marhefka, RN) Datetime: 07/21/2016 11:45 Pitocin (milliunit): Pitocin Increased to (milliunits) @ (Annotations: 8) (Adilia Marhefka, RN) Datetime: 07/21/2016 11:44 NBP Sys/Juany/Mean (mmHg): 119 (QS system process) : 57 (QS system process) : 80 (QS system process) Pulse: 75 (QS system process) LaborFlag: Labor (QS system process) Datetime: 07/21/2016 11:42 NBP Sys/Juany/Mean (mmHg): 125 (QS system process) : 59 (QS system process) : 84 (QS system process) Pulse: 88 (QS system process) LaborFlag: Labor (QS system process) Datetime: 07/21/2016 11:41 NBP Sys/Juany/Mean (mmHg): 125 (QS system process) : 62 (QS system process) : 88 (QS system process) Pulse: 71 (QS system process) LaborFlag: Labor (QS system process) Datetime: 07/21/2016 11:40 NBP Sys/Juany/Mean (mmHg): 124 (QS system process) : 57 (QS system process) : 82 (QS system process) Pulse: 80 (QS system process) I/O Interventions: Prado Cath Inserted (Adilia Humphries RN) LaborFlag: Labor (QS system process) Datetime: 07/21/2016 11:39 NBP Sys/Juany/Mean (mmHg): 126 (QS system process) : 60 (QS system process) : 82 (QS system process) Pulse: 76 (QS system process) LaborFlag: Labor (QS system process) Datetime: 07/21/2016 11:38 NBP Sys/Juany/Mean (mmHg): 129 (QS system process) : 71 (QS system process) : 92 (QS system process) Pulse: 78 (QS system process) LaborFlag: Labor (QS system process) Datetime: 07/21/2016 11:37 NBP Sys/Juany/Mean (mmHg): 126 (QS system process) : 60 (QS system process) : 86 (QS system process) Pulse: 70 (QS system process) LaborFlag: Labor (QS system process) Datetime: 07/21/2016 11:35 NBP Sys/Juany/Mean (mmHg): 130 (QS system process) : 62 (QS system process) : 89 (QS system process) Pulse: 86 (QS system process) LaborFlag: Labor (QS system process) Datetime: 07/21/2016 11:34 NBP Sys/Juany/Mean (mmHg): 132 (QS system process) NBP Sys/Juany/Mean (mmHg): 141 (QS system process) : 56 (QS system process) : 64 (QS system process) : 87 (QS system process) : 92 (QS system process) Pulse: 73 (QS system process) Pulse: 75 (QS system process) Epidural Procedure: Loading Dose (Adilia Humphries, RN) LaborFlag: Labor (QS system process) Datetime: 07/21/2016 11:33 Epidural Procedure: Cath Placed (Adilia Yudyhefka, RN) Datetime: 07/21/2016 11:32 Epidural Procedure: Test Dose (Adilia Palmermorgan, RN) Datetime: 07/21/2016 11:31 Procedure Verify: Correct Patient Identity; Correct Side and Site are Marked; Accurate Procedure Consent Form; Agreement on Procedure to be Done; Correct Patient Position; Relevant Images and Results are Properly Labeled and Displayed; Addressed Need to Administer Antibiotics or Fluids for Irrigation; Safety Precautions Based on Patient History or Medication Use (Adilia Humphries RN) Anesthesia Plans: Epidural (Adilia Humphries RN) Epidural Positioning: Sitting (Adilia Humphries RN) Datetime: 07/21/2016 11:30 Pitocin (milliunit): Pitocin Remains (milliunits) @ (Annotations: 6) (Adilia Humphries RN) Datetime: 07/21/2016 11:27 Procedure Verify: Correct Patient Identity; Correct Side and Site are Marked; Accurate Procedure Consent Form; Agreement on Procedure to be Done; Correct Patient Position; Relevant Images and Results are Properly Labeled and Displayed; Addressed Need to Administer Antibiotics or Fluids for Irrigation; Safety Precautions Based on Patient History or Medication Use (Adilia Humphries RN) Anesthesia Plans: Epidural (Adilia Humphries RN) Epidural Positioning: Sitting (Adilia Humphries RN) Anesthesia Comments: Dr. Salvador @ bedside. (Adilia Humphries RN) Datetime: 07/21/2016 11:26 Procedure Verify: Correct Patient Identity; Correct Side and Site are Marked; Accurate Procedure Consent Form; Agreement on Procedure to be Done; Correct Patient Position; Relevant Images and Results are Properly Labeled and Displayed; Addressed Need to Administer Antibiotics or Fluids for Irrigation; Safety Precautions Based on Patient History or Medication Use (Adilia Humphries RN) Anesthesia Plans: Epidural (Adilia Humphries RN) Datetime: 07/21/2016 11:15 Pitocin (milliunit): Pitocin Remains (milliunits) @ (Annotations: 6) (Adilia Marlesliefka, RN) Datetime: 07/21/2016 11:14 NBP Sys/Juany/Mean (mmHg): 124 (QS system process) : 72 (QS system process) : 93 (QS system process) Pulse: 63 (QS system process) LaborFlag: Labor (QS system process) Datetime: 07/21/2016 11:00 Monitor Mode: External (Adilia Marlesliefka, RN) Frequency (min): 9 (Adilia Marhefka, RN) Quality: Mild (Adilia Marhefka, RN) Duration (sec): 60 (Adilia Marhefka, RN) Resting Tone (Palpate): Relaxed (Adilia Marhefka, RN) Monitor Mode: External US (Adilia Marhefka, RN) FHR Baseline Rate : 140 (Adilia Marhefka, RN) FHR Baseline Changes: No Baseline Change (Adilia Marhefka, RN) Variability: Moderate 6-25 bpm (Adilia Marhefka, RN) Accelerations: 15X15 (Adilia Marhefka, RN) Decelerations: None (Adilia Marhefka, RN) Pitocin (milliunit): Pitocin Increased to (milliunits) @ (Annotations: 6) (Adilia Marhefka, RN) Datetime: 07/21/2016 10:45 Monitor Mode: External (Adilia Marhefka, RN) Frequency (min): 2-5 (Adilia Marhefka, RN) Quality: Mild (Adilia Marhefka, RN) Duration (sec): 50-70 (Adilia Marhefka, RN) Resting Tone (Palpate): Relaxed (Adilia Marhefka, RN) Monitor Mode: External US (Adilia Marhefka, RN) FHR Baseline Rate : 140 (Adilia Marhefka, RN) FHR Baseline Changes: No Baseline Change (Adilia Marhefka, RN) Variability: Moderate 6-25 bpm (Adilia Marhefka, RN) Accelerations: None (Adilia Marhefka, RN) Decelerations: None (Adilia Marhefka, RN) Pitocin (milliunit): Pitocin Remains (milliunits) @ (Annotations: 4) (Adilia Humphries RN) Patient Care Comments: Pt vomiting (Adilia Humphries RN) Datetime: 07/21/2016 10:44 NBP Sys/Juany/Mean (mmHg): 145 (QS system process) : 71 (QS system process) : 102 (QS system process) Pulse: 62 (QS system process) LaborFlag: Labor (QS system process) Datetime: 07/21/2016 10:30 Monitor Mode: External (Adilia Humphries RN) Frequency (min): 3-8 (Adilia Humphries RN) Quality: Mild (Adilia Humphries RN) Duration (sec): 50-70 (Adilia Humphries RN) Resting Tone (Palpate): Relaxed (Adilia Humphries RN) Monitor Mode: External US (Adilia Humphries RN) FHR Baseline Rate : 140 (Adilia Marhefka, RN) FHR Baseline Changes: No Baseline Change (Adilia Marhefka, RN) Variability: Moderate 6-25 bpm (Adilia Marhefka, RN) Accelerations: None (Adilia Marhefka, RN) Decelerations: None (Adilia Marhefka, RN) Pitocin (milliunit): Pitocin Remains (milliunits) @ (Annotations: 4) (Adilia Marhefka, RN) Datetime: 07/21/2016 10:15 Monitor Mode: External (Adilia Marhefka, RN) Frequency (min): 2-5 (Adilia Marhefka, RN) Quality: Mild (Adilia Marhefka, RN) Duration (sec): 40-100 (Adilia Marhefka, RN) Resting Tone (Palpate): Relaxed (Adilia Marhefka, RN) Monitor Mode: External US (Adilia Marhefka, RN) FHR Baseline Rate : 140 (Adilia Marhefka, RN) FHR Baseline Changes: No Baseline Change (Adilia Marhefka, RN) Variability: Moderate 6-25 bpm (Adilia Marhefka, RN) Accelerations: 15X15 (Adilia Marhefka, RN) Decelerations: None (Adilia Marhefka, RN) Pitocin (milliunit): Pitocin Increased to (milliunits) @ (Annotations: 4) (Adilia Marhefka, RN) Datetime: 07/21/2016 10:12 Membrane Status: Ruptured (Adilia Humphries RN) Membranes Rupture Method: Artificial (Adilia Humphries, TAMARA) Amniotic Fluid Color: Clear (Adilia Humphries, RN) Amniotic Fluid Amount: Small (Adilia Kristel, RN) Datetime: 07/21/2016 10:10 Dilatation (cm): 1.5 (Adilia Humphries RN) Effacement (%): 80 (Adilia Humphries RN) Station: -1 (Adilia Humphries RN) Exam by: Azael Malik CNM (Adilia Humphries RN) Vaginal Bleeding: None (Adilia Humphries, TAMARA) Cervix, Consistency: Moderate (Adilia Humphries, TAMARA) Cervix, Position: Midposition (Adilia Humphries, TAMARA) Datetime: 07/21/2016 10:00 Monitor Mode: External; Palpation (Adilia Humphries RN) Frequency (min): Irregular (Adilia Humphries RN) Quality: Mild (Adilia Humphries RN) Duration (sec): 60-80 (Adilia Humphries RN) Resting Tone (Palpate): Relaxed (Adilia Humphries RN) Monitor Mode: External US (Adilia Humphries RN) FHR Baseline Rate : 135 (Adilia Humphries RN) FHR Baseline Changes: No Baseline Change (Adilia Humphries RN) Variability: Moderate 6-25 bpm (Adilia Humphries RN) Accelerations: 15X15 (Adilia Humphries RN) Decelerations: None (Adilia Humphries RN) Pitocin (milliunit): Pitocin Started (milliunits) @ 2 (Adilia Humphries RN)
[2016-07-21] MEDS ORDERED: FENTANYL/BUPIVACAINE/NS/PF 100 ML EPI PRN (12:42)
[2016-07-21] MEDS ORDERED: BUPIVACAINE HCL 0.25 % INJ/PF (2.5 MG/1 ML) 30 ML VIAL INFIL ONE (12:42)
[2016-07-21] MEDS ORDERED: BENZOIN/ALOE VERA/STORAX/TOLU TINCTURE 60 ML TP PRN (12:42)
[2016-07-21] MEDS ORDERED: LIDOCAINE 1% INJ-PF (10 MG/ML) 30 ML SDV ONE (14:01)
[2016-07-21] MEDS ORDERED: OXYTOCIN/NORMAL SALINE 20 UNIT/1,000 ML RTUINJ ONE (14:01)
[2016-07-21] MEDS ORDERED: MISOPROSTOL 0.2 MG TABLET ONE (14:01)
--- NOTE | 2016-07-21 14:01 | L&D Flow Sheet ---
LD Flowsheet Datetime Report Generated by CPN: 07/21/2016 14:00 Datetime: 07/21/2016 13:51 Patient Position/Activity: Hands-Knees (Adilia Marhefka, RN) Datetime: 07/21/2016 13:37 Oxygen Method: Non-Rebreather (Adilia Marhefka, RN) Datetime: 07/21/2016 13:32 Pitocin (milliunit): Pitocin Discontinued (Adilia Marhefka, RN) IV/Blood Work: IV Bolus Started (Adilia Marhefka, RN) Datetime: 07/21/2016 13:30 Monitor Mode: External US (Adilia Marhefka, RN) FHR Baseline Rate : 155 (Adilia Marhefka, RN) FHR Baseline Changes: No Baseline Change (Adilia Marhefka, RN) Variability: Moderate 6-25 bpm (Adilia Marhefka, RN) Accelerations: None (Adilia Marhefka, RN) Decelerations: Late (Adilia Marhefka, RN) Pitocin (milliunit): Pitocin Remains (milliunits) @ (Annotations: 12) (Adilia Marhefka, RN) Datetime: 07/21/2016 13:28 Patient Position/Activity: Right Lateral; Peanut Ball (Adilia Humphries RN) Datetime: 07/21/2016 13:26 NBP Sys/Juany/Mean (mmHg): 124 (QS system process) : 57 (QS system process) : 78 (QS system process) Pulse: 66 (QS system process) Dilatation (cm): 6.0 (Adilia Humphries RN) Effacement (%): 80 (Adilia Humphries RN) Station: -1 (Adilia Humphries RN) Exam by: Coby Humphries RN (Adilia Humphries RN) Vaginal Bleeding: Scant (Adilia Humphries RN) Cervix, Consistency: Soft (Adilia Humphries RN) Cervix, Position: Midposition (Adilia Humphries RN) LaborFlag: Labor (QS system process) Datetime: 07/21/2016 13:15 Monitor Mode: External US (Adilia Marhefka, RN) FHR Baseline Rate : 155 (Adilia Marhefka, RN) FHR Baseline Changes: No Baseline Change (Adilia Marhefka, RN) Variability: Moderate 6-25 bpm (Adilia Marhefka, RN) Accelerations: None (Adilia Marhefka, RN) Decelerations: Late (Adilia Marhefka, RN) Pitocin (milliunit): Pitocin Remains (milliunits) @ (Annotations: 12) (Adilia Marhefka, RN) Datetime: 07/21/2016 13:11 Patient Position/Activity: Left Lateral; Peanut Ball; Low Fowlers (Adilia Marhefka, RN) Datetime: 07/21/2016 13:00 Monitor Mode: External (Adilia Marhefka, RN) Frequency (min): 3-4 (Adilia Marhefka, RN) Quality: Mild/Moderate (Adilia Marhefka, RN) Duration (sec): 80-110 (Adilia Hernandezfka, RN) Resting Tone (Palpate): Relaxed (Adilia Humphries, RN) Monitor Mode: External US (Adilia Humphries, RN) FHR Baseline Rate : 145 (Adilia Hernandezfka, RN) FHR Baseline Changes: No Baseline Change (Adilia Maryfka, RN) Variability: Moderate 6-25 bpm (Adilia Maryfka, RN) Accelerations: None (Adilia Maryfka, RN) Decelerations: Early; Variable (Adiliarito Hernandezfka, RN) Pitocin (milliunit): Pitocin Increased to (milliunits) @ (Annotations: 12) (Adilia Palmerka, RN) Datetime: 07/21/2016 12:56 NBP Sys/Juany/Mean (mmHg): 104 (QS system process) : 57 (QS system process) : 78 (QS system process) Pulse: 67 (QS system process) LaborFlag: Labor (QS system process) Datetime: 07/21/2016 12:45 Monitor Mode: External; Palpation (Adilia Marhefka, RN) Frequency (min): 2-4 (Adilia Marhefka, RN) Quality: Mild/Moderate (Adilia Marhefka, RN) Duration (sec): 80-100 (Adilia Marhefka, RN) Resting Tone (Palpate): Relaxed (Adilia Marhefka, RN) Monitor Mode: External US (Adilia Marhefka, RN) FHR Baseline Rate : 140 (Adilia Marhefka, RN) FHR Baseline Changes: No Baseline Change (Adilia Marhefka, RN) Variability: Moderate 6-25 bpm (Adilia Marhefka, RN) Accelerations: 10X10 (Adilia Marhefka, RN) Decelerations: Early (Adilia Marhefka, RN) Pitocin (milliunit): Pitocin Increased to (milliunits) @ (Annotations: 10) (Adilia Marhefka, RN) Datetime: 07/21/2016 12:30 Monitor Mode: External (Adilia Marhefka, RN) Frequency (min): 2-4 (Adilia Marhefka, RN) Quality: Mild/Moderate (Adilia Marhefka, RN) Duration (sec): 90-100 (Adilia Marhefka, RN) Resting Tone (Palpate): Relaxed (Adilia Marhefka, RN) Monitor Mode: External US (Adilia Marhefka, RN) FHR Baseline Rate : 145 (Adilia Marhefka, RN) FHR Baseline Changes: No Baseline Change (Adilia Marhefka, RN) Variability: Minimal - Undetectable to <=5 bpm (Adilia Marhefmorgan, RN) Decelerations: Early; Late; Variable (Adiliarito Hernandezfmorgan, RN) Pitocin (milliunit): Pitocin Remains (milliunits) @ (Annotations: 8) (Adilia Humphries, RN) Datetime: 07/21/2016 12:25 NBP Sys/Juany/Mean (mmHg): 111 (QS system process) : 56 (QS system process) : 79 (QS system process) Pulse: 66 (QS system process) Respirations: 16 (Adilia Humphries, RN) LaborFlag: Labor (QS system process) Datetime: 07/21/2016 12:22 Patient Position/Activity: Right Lateral; Peanut Ball; Low Fowlers (Adilia Humphries, RN) Datetime: 07/21/2016 12:19 NBP Sys/Juany/Mean (mmHg): 106 (QS system process) : 56 (QS system process) : 78 (QS system process) Pulse: 65 (QS system process) Respirations: 16 (Adilia Marhefka, RN) Temperature (F): 97.6 (Adilia Marhefka, RN) Temperature (C): 36.4 (QS system process) Temperature Route: Oral (Adilia Marhefka, RN) LaborFlag: Labor (QS system process) Datetime: 07/21/2016 12:15 Monitor Mode: External US (Adilia Marhefka, RN) FHR Baseline Rate : 145 (Adilia Marhefka, RN) FHR Baseline Changes: No Baseline Change (Adilia Marhefka, RN) Variability: Moderate 6-25 bpm (Adilia Marhefka, RN) Accelerations: None (Adilia Marhefka, RN) Decelerations: Early; Late; Variable (Adilia Marhefka, RN) Pitocin (milliunit): Pitocin Remains (milliunits) @ 8 (Adilia Marhefka, RN) Datetime: 07/21/2016 12:13 NBP Sys/Juany/Mean (mmHg): 98 (QS system process) : 56 (QS system process) : 73 (QS system process) Pulse: 67 (QS system process) LaborFlag: Labor (QS system process) Datetime: 07/21/2016 12:12 Medication Comments: 2 mg ephedrine given via IV (Adilia Humphries RN) Datetime: 07/21/2016 12:00 NBP Sys/Juany/Mean (mmHg): 120 (QS system process) : 75 (QS system process) : 88 (QS system process) Pulse: 73 (QS system process) Monitor Mode: External; Palpation (Adilia Humphries RN) Frequency (min): 2-3 (Adilia Humphries RN) Quality: Mild/Moderate (Adilia Humphries RN) Duration (sec): 70-80 (Adilia Humphries RN) Resting Tone (Palpate): Relaxed (Adilia Humphries RN) Monitor Mode: External US (Adilia Humphries RN) FHR Baseline Rate : 140 (Adilia Humphries RN) FHR Baseline Changes: No Baseline Change (Adilia Humphries RN) Variability: Moderate 6-25 bpm (Adilia Humphries RN) Accelerations: None (Adilia Humphries RN) Decelerations: Late (Adilia Humphries RN) Pitocin (milliunit): Pitocin Remains (milliunits) @ (Annotations: 8) (Adilai Humphries RN) LaborFlag: Labor (QS system process)
--- NOTE | 2016-07-21 16:00 | L&D Flow Sheet ---
LD Flowsheet Datetime Report Generated by CPN: 07/21/2016 16:00 Datetime: 07/21/2016 15:51 NBP Sys/Juany/Mean (mmHg): 118 (QS system process) : 67 (QS system process) : 85 (QS system process) Pulse: 78 (QS system process) Datetime: 07/21/2016 15:36 NBP Sys/Juany/Mean (mmHg): 121 (QS system process) : 65 (QS system process) : 84 (QS system process) Pulse: 71 (QS system process) Datetime: 07/21/2016 15:28 Stage of : Recovery (Adliia Humphries RN) Pain Scale: 2 (Adilia Humphries RN) Pain Presence: Constant (Adilia Humphries RN) Pain Type: Ache (Adilia Humphries RN) Pain Location: Abdomen; Perineum (Adilia Humphries RN) Pain Goal: 0 (Adilia Humphries RN) Pain Relief Measures: Comfort Measures (Adilia Humphries RN) Datetime: 07/21/2016 15:21 NBP Sys/Juany/Mean (mmHg): 122 (QS system process) : 67 (QS system process) : 85 (QS system process) Pulse: 80 (QS system process) LaborFlag: Labor (QS system process) Datetime: 07/21/2016 15:18 Stage 2 Comments: viable baby girl, see delivery summary (Kourtney Vitrano, RN) Datetime: 07/21/2016 15:16 Communication Comments: Nursery at bedside (Kourtney Vitrano, RN) Datetime: 07/21/2016 15:15 Monitor Mode: External US (Adilia Maryfka, RN) FHR Baseline Rate : 140 (Adilia Marhefka, RN) FHR Baseline Changes: No Baseline Change (Adilia Marhefka, RN) Variability: Moderate 6-25 bpm (Adilia Marhefka, RN) Accelerations: None (Adilia Marhefka, RN) Decelerations: Late (Adilia Marhefka, RN) Datetime: 07/21/2016 15:14 Communication Comments: Nursery called for delivery (Kourtney Vitrano, RN) Datetime: 07/21/2016 15:13 Pushing Progress: with Pushing (Kourtney Vitrano, RN) Datetime: 07/21/2016 15:06 Stage 2 Comments: Squat bar (Kourtney Vitrano, RN) Datetime: 07/21/2016 15:00 Monitor Mode: External US (Adilia Marhefka, RN) FHR Baseline Rate : 145 (Adilia Marhefka, RN) FHR Baseline Changes: No Baseline Change (Adilia Marhefka, RN) Variability: Moderate 6-25 bpm (Adilia Marhefka, RN) Accelerations: 15X15 (Adilia Marhefka, RN) Decelerations: Late (Adilia Marhefka, RN) Pitocin (milliunit): Pitocin Increased to (milliunits) @ 16 (Kourtney Vitrano, RN) Datetime: 07/21/2016 14:56 NBP Sys/Juany/Mean (mmHg): 117 (QS system process) : 92 (QS system process) : 100 (QS system process) Pulse: 72 (QS system process) LaborFlag: Labor (QS system process) Datetime: 07/21/2016 14:55 Pushing Progress: Descent with Pushing (Kourtney Vitrano, RN) Datetime: 07/21/2016 14:52 Stage 2 Comments: Tug of war (Kourtney Vitrano, RN) Datetime: 07/21/2016 14:45 Monitor Mode: External; Palpation (Kourtney Vitrano, RN) Frequency (min): 2-3 (Kourtney Vitrano, RN) Quality: Moderate to Strong (Kourtney Vitrano, RN) Duration (sec): 60-90 (Kourtney Vitrano, RN) Duration Criteria: Less than Two 120 Second Contractions (Kourtney Vitrano, RN) Pattern: Normal: <= 5 Contractions in 10 Minutes (Kourtney Vitrano, RN) Resting Tone (Palpate): Relaxed (Kourtney Vitrano, RN) Monitor Mode: External US (Kourtney Vitrano, RN) FHR Baseline Rate : 150 (Kourtney Vitrano, RN) Variability: Moderate 6-25 bpm (Kourtney Vitrano, RN) Accelerations: 15X15 (Kourtney Vitrano, RN) Decelerations: Late; Variable (Kourtney Vitrano, RN) Pitocin (milliunit): Pitocin Remains (milliunits) @ 14 (Kourtney Vitrano, RN) Datetime: 07/21/2016 14:43 Pitocin (milliunit): Pitocin Increased to (milliunits) @ 14 (Kourtney Vitrano, RN) Datetime: 07/21/2016 14:41 Pushing Position: Pushing Lithotomy (Kourtney Vitrano, RN) Datetime: 07/21/2016 14:36 Stage 2 Comments: Tug of war (Kourtney Vitrano, RN) Datetime: 07/21/2016 14:34 Patient Position/Activity: Right Tilt (Kourtney Vitrano, RN) Datetime: 07/21/2016 14:32 I/O Interventions: Prado Discontinued (Kourtney Vitrano, RN) Pushing Progress: Descent with Pushing (Kourtney Vitrano, RN) Datetime: 07/21/2016 14:30 Monitor Mode: External (Kourtney Vitrano, RN) Frequency (min): 2-4 (Kourtney Vitrano, RN) Quality: Moderate to Strong (Kourtney Vitrano, RN) Duration (sec): 50-80 (Kourtney Vitrano, RN) Duration Criteria: Less than Two 120 Second Contractions (Kourtney Vitrano, RN) Pattern: Normal: <= 5 Contractions in 10 Minutes (Kourtney Vitrano, RN) Resting Tone (Palpate): Relaxed (Kourtney Vitrano, RN) Monitor Mode: External US (Kourtney Vitrano, RN) FHR Baseline Rate : 140 (Kourtney Vitrano, RN) Variability: Moderate 6-25 bpm (Kourtney Vitrano, RN) Accelerations: None (Kourtney Vitrano, RN) Decelerations: Late; Variable (Kourtney Vitrano, RN) Pitocin (milliunit): Pitocin Remains (milliunits) @ 12 (Kourtney Vitrano, RN) Datetime: 07/21/2016 14:29 Pushing Position: Pushing Lithotomy (Kourtney Vitrano, RN) Stage 2 Comments: Bed broken down (Kourtney Vitrano, RN) Datetime: 07/21/2016 14:27 Communication Comments: A. Emmel, CNM at bedside; reviewed strip (Adilia Palmerka, RN) Datetime: 07/21/2016 14:26 NBP Sys/Juany/Mean (mmHg): 126 (QS system process) : 57 (QS system process) : 82 (QS system process) Pulse: 65 (QS system process) LaborFlag: Labor (QS system process) Datetime: 07/21/2016 14:25 Patient Position/Activity: Right Lateral (Adilia Humphries, RN) Pushing Position: Pushing Right Side (Adilia Humphries, RN) Datetime: 07/21/2016 14:15 Monitor Mode: External (Kourtney Vitrano, RN) Frequency (min): 2-4 (Kourtney Vitrano, RN) Quality: Moderate to Strong (Kourtney Vitrano, RN) Duration (sec): 60-100 (Kourtney Vitrano, RN) Duration Criteria: Less than Two 120 Second Contractions (Kourtney Vitrano, RN) Pattern: Normal: <= 5 Contractions in 10 Minutes (Kourtney Vitrano, RN) Resting Tone (Palpate): Relaxed (Kourtney Vitrano, RN) Monitor Mode: External US (Kourtney Vitrano, RN) FHR Baseline Rate : 140 (Kourtney Vitrano, RN) Variability: Moderate 6-25 bpm (Kourtney Vitrano, RN) Accelerations: None (Kourtney Vitrano, RN) Decelerations: Late; Variable; Prolonged (Kourtney Vitrano, RN) Pitocin (milliunit): Pitocin Remains (milliunits) @ 12 (Kourtney Vitrano, RN) Patient Position/Activity: Left Tilt (Ginger Cazarestt, RN) Datetime: 07/21/2016 14:07 Pitocin (milliunit): Pitocin Started (milliunits) @ 12 (Ginger Powell RN) Medication Comments: Pitocin restarted per Azael Kirstymaranda ISACC. (Ginger Marlatt, RN) Datetime: 07/21/2016 14:04 Dilatation (cm): 10.0 (Ginger Powell, RN) Effacement (%): 100 (Ginger Jimeneslatt, RN) Station: 0 (Ginger Jimeneslatt, RN) Exam by: Azael Malik CNM (Ginger Powell, RN) Datetime: 07/21/2016 14:01 Dilatation (cm): 9.0 (Ginger Marlatt, RN) Effacement (%): 100 (Ginger Marlatt, RN) Station: 0 (Ginger Marlatt, RN) Exam by: Coby Humphries RN (Ginger Yudylatt, RN) Datetime: 07/21/2016 14:00 Monitor Mode: External; Palpation (Kourtney Amari, RN) Frequency (min): 2-4 (Kourtney Amari, RN) Quality: Moderate to Strong (Kourtney Vitrano, RN) Duration (sec): 60-90 (Kourtney Vitrano, RN) Duration Criteria: Less than Two 120 Second Contractions (Kourtney Vitrano, RN) Pattern: Normal: <= 5 Contractions in 10 Minutes (Kourtney Ricardoano, RN) Resting Tone (Palpate): Relaxed (Kourtney Ricardoano, RN) Monitor Mode: External US (Kourtneyjulia Fitzpatrick, RN) FHR Baseline Rate : 140 (Kourtney Vitrano, RN) Variability: Minimal - Undetectable to <=5 bpm (Kourtney Vitrano, RN) Accelerations: 15X15 (Kourtney Vitrano, RN) Decelerations: Late (Kourtney Amari, RN) Comments: Indeterminate deceleration d/t broken tracing; RN at bedside performing interventions and adjusting US (Kourtney Fitzpatrick, TAMARA)
--- NOTE | 2016-07-21 17:11 | Delivery Summary ---
Del Sum A-C Datetime Report Generated by CPN: 07/21/2016 17:11 ADMISSION DATA Chief Complaint: Scheduled Induction of Labor Indication for Induction: Other Indication for Induction Comment: ama, marginal cord insertion, suboxone use Admission Impression: Term, Intrauterine ; No Active Labor; Intact Membranes; Induction of Labor Admit Provider Comments: TErm induction for marginal cord insertion/ AMA/ suboxone user. GBS neg. for cervical ripening tonight DELIVERY PERSONNEL Delivery Doctor:: Carlene Malik CNM Labor and Delivery Nurse:: Adilia Humphries RNcement sack breaker Nurse:: Kourtney Fitzpatrick RN Nursery Nurse:: Angella Alvarez RN Harvesting Contractor/PROPERTY PRESERVATION SPECIALIST: Janeth Gutierrez CST Harvesting Contractor/PROPERTY PRESERVATION SPECIALIST: Yaneth Martinez CNA II MATERNAL INFORMATION Delivery Anesthesia: Epidural Medications After Delivery: Pitocin Bolus-Please Comment Meds After Delivery Comment: Pitocin 20 units in 1000 mL NS bolusing after delivery of placenta Estimated Blood Loss (ml): 300 Maternal Complications: Other Other Maternal Complications: Subutex; Marginal cord insertion; AMA Provider Comments: late decelerations O2 via facemask fetus resuscitated pt with increase urge to push tug of war, handle bars, and birthing bar utilized delivery of viable female bulb suctioned on perineum CHRISTINA infant to abdomen tactile stimulation elicits spont cry cord clamped and cut by FOB repair in usual fashion x3 uninterrupted stitches ebl 300 cc hemostasis achieved LABOR SUMMARY EDC: 07/19/2016 00:00 No. Babies in Womb: 1 Attempted: No Labor Anesthesia: Epidural LABOR INFORMATION Reason for Induction: Other Reason for Induction- Other: Subutex; AMA; Marginal cord insertion Onset of Labor: 07/21/2016 10:12 Complete Dilatation: 07/21/2016 14:04 Cervical Ripening Agents: Cervidil Oxytocin: Induction Group B Beta Strep: Negative Antibiotics # of Doses: 0 Antibiotics Time of Last Dose: N/A Steroids Given: None Reason Steroids Not Administered: Not Applicable MEMBRANES Membranes Rupture Method: Artificial Rupture of Membranes: 07/21/2016 10:12 Length of Rupture (hr): 5.10 Amniotic Fluid Color: Clear Amniotic Fluid Amount: Small Amniotic Fluid Odor: Normal STAGES OF LABOR Stage 1 hr: 3 Stage 1 min: 52 Stage 2 hr: 1 Stage 2 min: 14 Stage 3 hr: 0 Stage 3 min: 2 Total Time in Labor hr: 5 Total Time in Labor min: 8 VAGINAL DELIVERY Episiotomy: None Laceration Extension: First Degree Laceration Type: Vaginal Laceration Repair: Yes Laceration Repair Note: skin tag on perinuem tied off- pt desires x2 stitches 1st degree vaginal laceration x3 uninterrupted stitches under epidural Sponge Count Correct: Yes Sharps Count Correct: Yes CSECTION DELIVERY Primary Indication: N/A Secondary Indication: N/A CSection Incidence: N/A Labor: N/A Elective: N/A CSection Incision: N/A BABY A INFORMATION Infant Delivery Date/Time: 07/21/2016 15:18 Method of Delivery: Vaginal Born in Route : No : N/A Forceps: N/A Vacuum Extraction: N/A Shoulder Dystocia : No PRESENTATION/POSITION BABY A Presentation: Cephalic Cephalic Presentation: Vertex Vertex Position: Left Occipital Anterior Breech Presentation: N/A PLACENTA INFORMATION BABY A Placenta Delivery Time : 07/21/2016 15:20 Placenta Method of Delivery: Spontaneous Placenta Status: Delivered SCORES BABY A Heart Rate 1 min: >100 bpm Resp Effort 1 min: Good Cry Reflex Irritability 1 min: Cough or Sneeze or Pulls Away Muscle Tone 1 min: Active Motion Color 1 min: Body [place], Extremities Blue Resuscitation Effort 1 min: Tactile Stimulation SCORE 1 MIN: 9 Heart Rate 5 min: >100 bpm Resp Effort 5 min: Good Cry Reflex Irritability 5 min: Cough or Sneeze or Pulls Away Muscle Tone 5 min: Active Motion Color 5 min: Body [place], Extremities Blue Resuscitation Effort 5 min: N/A SCORE 5 MIN: 9 INFORMATION BABY A Gestational Age at Delivery: 40.2 Gestational Status: Full Term- 39- 40.6 Weeks Infant Outcome : Liveborn Infant Condition : Stable Infant Sex: Female IDENTIFICATION BABY A Infant Verification Date/Time: 07/21/2016 15:55 ID Band Number: [id number] Mother's Name Verified: Yes Infant RN Verifying : Hina Powell RN Additional Verifying Personnel: Coby Townsend RN WEIGHT/LENGTH BABY A Infant Birthweight (gm): 3210 Infant Weight (lb): 7 Infant Weight (oz): 1 Infant Length (in): 20.50 Infant Length (cm): 52.07 CORD INFORMATION BABY A No. Cord Vessels: 3 Nuchal Cord : N/A Cord Blood Taken: Yes-For Eval (Mom's Blood Type - or O+) Suction: None ASSESSMENT BABY A Infant Complications: Multiple Late Decels; Meconium; Other Complications- Other: Terminal meconium; R compound hand Physical Findings at Delivery: Caput Succedaneum Infant Respirations: Appears Normal Skin to Skin: Yes Skin to Skin Time (min): 60 Modular Home Crew Member/ALS Called : Yes Care By: Coby Fitzpatrick RN Transferred To: Remains with Mother BABY B INFORMATION : N/A SIGNATURES Assignment: Swapna Webster MD Signature: with User ID: [email or web address] : with User ID: [email or web address]
--- NOTE | 2016-07-21 17:58 | Admission Physical ---
Datetime Report Generated by CPN: 07/21/2016 17:58 CURRENT ADMISSION Chief Complaint: Scheduled Induction of Labor Indication for Induction: Other Indication for Induction- Other: ama, marginal cord insertion, suboxone use Admit Plan: Admit to Unit; Initiate Labor Induction Protocol ALLERGIES Medication Allergies: No Medication Allergies: No Known Allergies (07/09/2016) Latex: No Latex Allergies Food Allergies: N/A Environmental Allergies: N/A OBSTETRICAL HISTORY EDC: 07/19/2016 00:00 : 3 Para: 1 Term: 1 : 0 SAB: 1 IAB: 0 Ectopic: 0 Livin Cesareans: 0 VBACs: 0 Multiple Births: 0 Gestational Diabetes: No Rh Sensitization: No Incompetent Cervix: No LOU: No Infertility: No ART Treatment: No Uterine Anomaly: No IUGR: No Hx Previous C/S: No Macrosomia: No Hx Loss/Stillborn: No PIH: No Hx : No Placenta Previa/Abruption: No Depression/PP Depression: No PTL/PROM: No Post Hemorrhage: No Obstetrical History Comments: G1: 2007 SAB 8 weeks G2: 2009 baby boy, 41 weeks, 24 hours labor, 7 lb 9 oz G3: Current; Marginal cord insertion, AMA, Subutex; Sees MFM SEE RECORDS Alcohol: No Marijuana : No Cocaine: No Other Illicit Drugs: Yes Illicit Drug Comments: Hx heroine use; On Subutex Cigarettes: Current Everyday Smoker. [id number] MEDICAL HISTORY Diabetes: No Blood Transfusion: No Pulmonary Disease (Asthma, TB): No Breast Disease: No Hypertension: No Appliance Repairer Surgery: No Heart Disease: No Hosp/Surgery: No Autoimmune Disorder: No Anesthetic Complications: No Kidney Disease: No Abnormal Pap Smear: Yes Neuro/Epilepsy: No Psychiatric Disorders: Yes Other Medical Diseases: No Hepatitis/Liver Disease: No Significant Family History: No Varicosities/Phlebitis: No Trauma/Violence : No Thyroid Dysfunction: No Medical History Comments: Psychiatric: Anxiety/Depression, Hx heroine abuse Abnormal Pap: 2000, Treated with colpo INFECTIOUS HISTORY Gonorrhea: No Genital Herpes: No Chlamydia: No Tuberculosis: No Syphilis: No Hepatitis: No HIV/AIDS Exposure: No Rash or Viral Illness: No HPV: No PHYSICAL EXAM General: Normal HEENT: Deferred Neurologic: Deferred Thyroid: Deferred Heart: Normal Lungs: Deferred Breast: Deferred Back: Normal Abdomen: Normal Genitourinary Exam: Normal Extremities: Normal DTRs: Normal Pelvic Type: Adequate Vital Signs: Reviewed; Within Normal Limits VAGINAL EXAM Dilatation: 9 Effacement: 100 Station: -1 MEMBRANES Membranes: Ruptured Amniotic Fluid Color: Clear FETUS A EGA: 40.2 FHR- Baseline: 130 Variability: Moderate 6-25bpm Accelerations: 15X15 Decelerations: None FHR Category: Category I Admit Comment: TErm induction for marginal cord insertion/ AMA/ suboxone user. GBS neg. for cervical ripening tonight PLANS FOR LABOR AND DELIVERY Labor and Delivery: None Pain Management: Epidural Feeding Preference: Formula Benefit of Breast Feed Discussed: Yes Circumcision: N/A INFORMED CONSENT Informed Consent Obtained: Vaginal Delivery; Section Delivery; Induction of Labor; Risks, Benefits and Alternatives Discussed Signature: with User ID: [email or web address]
[2016-07-21] MEDS ORDERED: PROMETHAZINE HCL 25 MG SUPP.RECT PR PRN (18:17)
[2016-07-21] MEDS ORDERED: MAGNESIUM HYDROXIDE SUSP 30 ML UDCUP PO PRN (18:17)
[2016-07-21] MEDS ORDERED: GLYCERIN/WITCH HAZEL LEAF 1 EACH MED..PAD TP PRN (18:17)
[2016-07-21] MEDS ORDERED: ACETAMINOPHEN 650 MG SUPP.RECT PR PRN (18:17)
[2016-07-21] MEDS ORDERED: MEASLES,MUMPS&RUBELLA VACC/PF 0.5 ML VIAL SUBCUT PRN (18:17)
[2016-07-21] MEDS ORDERED: DIBUCAINE 1% OINTMENT 28 GM TP PRN (18:17)
[2016-07-21] MEDS ORDERED: PROMETHAZINE HCL 25 MG TABLET PO PRN (18:17)
[2016-07-21] MEDS ORDERED: PSEUDOEPHEDRINE HCL 30 MG TABLET PO PRN (18:17)
[2016-07-21] MEDS ORDERED: PROMETHAZINE HCL INJ 25 MG/1 ML VIAL IV PRN (18:17)
[2016-07-21] MEDS ORDERED: DIPHENHYDRAMINE HCL 25 MG CAPSULE PO PRN (18:17)
[2016-07-21] MEDS ORDERED: BENZOCAINE/MENTHOL AEROSOL SPRAY 56 ML TOP PRN (18:17)
[2016-07-21] MEDS ORDERED: DIPH/PERTUSS(ACELL)/TETANUS VAC/PF 0.5 ML SYR (>=10YO) IM PRN (18:17)
[2016-07-21] MEDS ORDERED: NA PHOS,M-B/NA PHOS,DI-BA (ADULT) 133 ML ENEMA PR PRN (18:17)
[2016-07-21] MEDS ORDERED: ZOLPIDEM TARTRATE 5 MG TABLET PO PRN (18:17)
[2016-07-21] MEDS: BUPRENORPHINE 8 MG SL SCH (18:50)
[2016-07-21] MEDS ORDERED: FERROUS SULFATE 325 MG TABLET PO ONE (19:00)
[2016-07-21] MEDS ORDERED: DOCUSATE SODIUM 100 MG CAPSULE PO ONE (19:00)
--- NOTE | 2016-07-21 19:01 | L&D Flow Sheet ---
LD Flowsheet Datetime Report Generated by CPN: 07/21/2016 19:00 Datetime: 07/21/2016 17:06 NBP Sys/Juany/Mean (mmHg): 142 (QS system process) : 67 (QS system process) : 96 (QS system process) Pulse: 74 (QS system process) Datetime: 07/21/2016 17:00 Stage of : Recovery (Adilia Marhefka, RN) Datetime: 07/21/2016 16:51 NBP Sys/Juany/Mean (mmHg): 137 (QS system process) : 64 (QS system process) : 91 (QS system process) Pulse: 72 (QS system process) Datetime: 07/21/2016 16:45 Stage of : Recovery (Adilia Humphries RN) Pain Scale: 2 (Adilia Humphries RN) Pain Presence: Intermittent (Adilia Humphries RN) Pain Type: Cramping (Adilia Humphries RN) Pain Location: Abdomen; Perineum (Adilia Humphries RN) Pain Goal: 0 (Adilia Humphries RN) Pain Relief Measures: Comfort Measures (Adilia Humphries RN) Datetime: 07/21/2016 16:36 NBP Sys/Juany/Mean (mmHg): 146 (QS system process) : 72 (QS system process) : 103 (QS system process) Pulse: 71 (QS system process) Datetime: 07/21/2016 16:30 Stage of : Recovery (Adilia Marhefka, RN) Datetime: 07/21/2016 16:22 NBP Sys/Juany/Mean (mmHg): 146 (QS system process) : 76 (QS system process) : 100 (QS system process) Pulse: 70 (QS system process) Datetime: 07/21/2016 16:15 Stage of : Recovery (Adilia Marhefka, RN) Datetime: 07/21/2016 16:06 NBP Sys/Juany/Mean (mmHg): 118 (QS system process) : 65 (QS system process) : 86 (QS system process) Pulse: 67 (QS system process) Datetime: 07/21/2016 16:00 Stage of : Recovery (Adilia Marhefka, RN) Datetime: 07/21/2016 15:51 NBP Sys/Juany/Mean (mmHg): 118 (QS system process) : 67 (QS system process) : 85 (QS system process) Pulse: 78 (QS system process) Temperature (F): 98.6 (Adilia Marhefka, RN) Temperature (C): 37.0 (QS system process) Temperature Route: Oral (Adilia Marhefka, RN) Datetime: 07/21/2016 15:45 Stage of : Recovery (Adilia Estelaka, RN) Pain Scale: 3 (Adilia Marhefka, RN) Pain Presence: Constant (Adilia Marhefka, RN) Pain Type: Ache (Adilia Marhefka, RN) Pain Location: Abdomen; Perineum (Adilia Marhefka, RN) Pain Goal: 0 (Adilia Marhefka, RN) Pain Relief Measures: Comfort Measures (Adilia Marhefka, RN) Datetime: 07/21/2016 15:36 NBP Sys/Juany/Mean (mmHg): 121 (QS system process) : 65 (QS system process) : 84 (QS system process) Pulse: 71 (QS system process) Datetime: 07/21/2016 15:28 Stage of : Recovery (Adilia Humphries RN) Pain Scale: 2 (Adilia Humphries RN) Pain Presence: Constant (Adilia Humphries RN) Pain Type: Ache (Adilia Humphries RN) Pain Location: Abdomen; Perineum (Adilia Humphries RN) Pain Goal: 0 (Adilia Humphries RN) Pain Relief Measures: Comfort Measures (Adilia Humphries RN) Datetime: 07/21/2016 15:21 NBP Sys/Juany/Mean (mmHg): 122 (QS system process) : 67 (QS system process) : 85 (QS system process) Pulse: 80 (QS system process) LaborFlag: Labor (QS system process) Datetime: 07/21/2016 15:18 Stage 2 Comments: viable baby girl, see delivery summary (Kourtney Vitrano, RN) Datetime: 07/21/2016 15:16 Communication Comments: Nursery at bedside (Kourtney Vitrano, RN) Datetime: 07/21/2016 15:15 Monitor Mode: External (Adilia Humphries RN) Frequency (min): 2-3 (Adilia Marhefka, RN) Quality: Moderate to Strong (Adilia Marhefka, RN) Duration (sec): 80-90 (Adilia Marhefka, RN) Resting Tone (Palpate): Relaxed (Adilia Marhefka, RN) Monitor Mode: External US (Adilia Marhefka, RN) FHR Baseline Rate : 140 (Adilia Marhefka, RN) FHR Baseline Changes: No Baseline Change (Adilia Marhefka, RN) Variability: Moderate 6-25 bpm (Adilia Marhefka, RN) Accelerations: None (Adilia Marhefka, RN) Decelerations: Late (Adilia Marhefka, RN) Datetime: 07/21/2016 15:14 Communication Comments: Nursery called for delivery (Kourtney Vitrano, RN) Datetime: 07/21/2016 15:13 Pushing Progress: with Pushing (Kourtney Vitrano, RN) Datetime: 07/21/2016 15:06 Stage 2 Comments: Squat bar (Kourtney Vitrano, RN) Datetime: 07/21/2016 15:00 Monitor Mode: External; Palpation (Adilia Humphries, RN) Frequency (min): 2-3 (Adilia Humphries, RN) Quality: Moderate to Strong (Adilia Humphries, RN) Duration (sec): 40-80 (Adilia Humphries, RN) Resting Tone (Palpate): Relaxed (Adilia Humphries, RN) Monitor Mode: External US (Adilia Humphries, RN) FHR Baseline Rate : 145 (Adilia Humphries, RN) FHR Baseline Changes: No Baseline Change (Adilia Humphries, RN) Variability: Moderate 6-25 bpm (Adilia Palmerka, RN) Accelerations: 15X15 (Adilia Humphries, RN) Decelerations: Late (Adilia Humphries, RN) Pitocin (milliunit): Pitocin Increased to (milliunits) @ 16 (Kourtney Vitrano, RN) Datetime: 07/21/2016 14:56 NBP Sys/Juany/Mean (mmHg): 117 (QS system process) : 92 (QS system process) : 100 (QS system process) Pulse: 72 (QS system process) LaborFlag: Labor (QS system process) Datetime: 07/21/2016 14:55 Pushing Progress: Descent with Pushing (Kourtney Vitrano, RN) Datetime: 07/21/2016 14:52 Stage 2 Comments: Tug of war (Kourtney Vitrano, RN) Datetime: 07/21/2016 14:45 Monitor Mode: External; Palpation (Kourtney Vitrano, RN) Frequency (min): 2-3 (Kourtney Vitrano, RN) Quality: Moderate to Strong (Kourtney Vitrano, RN) Duration (sec): 60-90 (Kourtney Vitrano, RN) Duration Criteria: Less than Two 120 Second Contractions (Kourtney Vitrano, RN) Pattern: Normal: <= 5 Contractions in 10 Minutes (Kourtney Vitrano, RN) Resting Tone (Palpate): Relaxed (Kourtney Vitrano, RN) Monitor Mode: External US (Kourtney Vitrano, RN) FHR Baseline Rate : 150 (Kourtney Vitrano, RN) Variability: Moderate 6-25 bpm (Kourtney Vitrano, RN) Accelerations: 15X15 (Kourtney Vitrano, RN) Decelerations: Late; Variable (Kourtney Vitrano, RN) Pitocin (milliunit): Pitocin Remains (milliunits) @ 14 (Kourtney Vitrano, RN) Datetime: 07/21/2016 14:43 Pitocin (milliunit): Pitocin Increased to (milliunits) @ 14 (Kourtney Vitrano, RN) Datetime: 07/21/2016 14:41 Pushing Position: Pushing Lithotomy (Kourtney Vitrano, RN) Datetime: 07/21/2016 14:36 Stage 2 Comments: Tug of war (Kourtney Vitrano, RN) Datetime: 07/21/2016 14:34 Patient Position/Activity: Right Tilt (Kourtney Vitrano, RN) Datetime: 07/21/2016 14:32 I/O Interventions: Prado Discontinued (Kourtney Vitrano, RN) Pushing Progress: Descent with Pushing (Kourtney Vitrano, RN) Datetime: 07/21/2016 14:30 Monitor Mode: External (Kourtney Vitrano, RN) Frequency (min): 2-4 (Kourtney Vitrano, RN) Quality: Moderate to Strong (Kourtney Vitrano, RN) Duration (sec): 50-80 (Kourtney Vitrano, RN) Duration Criteria: Less than Two 120 Second Contractions (Kourtney Vitrano, RN) Pattern: Normal: <= 5 Contractions in 10 Minutes (Kourtney Vitrano, RN) Resting Tone (Palpate): Relaxed (Kourtney Vitrano, RN) Monitor Mode: External US (Kourtney Vitrano, RN) FHR Baseline Rate : 140 (Kourtney Vitrano, RN) Variability: Moderate 6-25 bpm (Kourtney Vitrano, RN) Accelerations: None (Kourtney Vitrano, RN) Decelerations: Late; Variable (Kourtney Vitrano, RN) Pitocin (milliunit): Pitocin Remains (milliunits) @ 12 (Kourtney Vitrano, RN) Datetime: 07/21/2016 14:29 Pushing Position: Pushing Lithotomy (Kourtney Vitrano, RN) Stage 2 Comments: Bed broken down (Kourtney Vitrano, RN) Datetime: 07/21/2016 14:27 Communication Comments: A. Emmel, CNM at bedside; reviewed strip (Adilia Kristel, RN) Datetime: 07/21/2016 14:26 NBP Sys/Juany/Mean (mmHg): 126 (QS system process) : 57 (QS system process) : 82 (QS system process) Pulse: 65 (QS system process) LaborFlag: Labor (QS system process) Datetime: 07/21/2016 14:25 Patient Position/Activity: Right Lateral (Adilia Marhefka, RN) Pushing Position: Pushing Right Side (Adilia Marhefka, RN) Datetime: 07/21/2016 14:15 Monitor Mode: External (Kourtney Vitrano, RN) Frequency (min): 2-4 (Kourtney Vitrano, RN) Quality: Moderate to Strong (Kourtney Vitrano, RN) Duration (sec): 60-100 (Kourtney Vitrano, RN) Duration Criteria: Less than Two 120 Second Contractions (Kourtney Vitrano, RN) Pattern: Normal: <= 5 Contractions in 10 Minutes (Kourtney Vitrano, RN) Resting Tone (Palpate): Relaxed (Kourtney Vitrano, RN) Monitor Mode: External US (Kourtney Vitrano, RN) FHR Baseline Rate : 140 (Kourtney Vitrano, RN) Variability: Moderate 6-25 bpm (Kourtney Vitrano, RN) Accelerations: None (Kourtney Vitrano, RN) Decelerations: Late; Variable; Prolonged (Kourtney Vitrano, RN) Pitocin (milliunit): Pitocin Remains (milliunits) @ 12 (Kourtney Fitzpatrick, RN) Patient Position/Activity: Left Tilt (Ginger Powell RN) Datetime: 07/21/2016 14:07 Pitocin (milliunit): Pitocin Started (milliunits) @ 12 (Ginger Powell RN) Medication Comments: Pitocin restarted per Azael Malik CNM. (Ginger Powell RN) Datetime: 07/21/2016 14:04 Dilatation (cm): 10.0 (Ginger Powell RN) Effacement (%): 100 (Ginger Powell RN) Station: 0 (Ginger Powell RN) Exam by: Azael Malik CNM (Ginger Powell RN) Datetime: 07/21/2016 14:01 Dilatation (cm): 9.0 (Ginger Powell RN) Effacement (%): 100 (Ginger Powell RN) Station: 0 (Ginger Powell RN) Exam by: Coby Humphries RN (Ginger Powell RN) Datetime: 07/21/2016 14:00 Monitor Mode: External; Palpation (Kourtney Ricardoano, RN) Frequency (min): 2-4 (Kourtney Vitrano, RN) Quality: Moderate to Strong (Kourtney Vitrano, RN) Duration (sec): 60-90 (Kourtney Vitrano, RN) Duration Criteria: Less than Two 120 Second Contractions (Kourtney Vitrano, RN) Pattern: Normal: <= 5 Contractions in 10 Minutes (Kourtney Vitrano, RN) Resting Tone (Palpate): Relaxed (Kourtney Amari, RN) Monitor Mode: External US (Kourtney Vitrano, RN) FHR Baseline Rate : 140 (Kourtney Vitrano, RN) Variability: Minimal - Undetectable to <=5 bpm (Kourtney Vitrano, RN) Accelerations: 15X15 (Kourtney Vitrano, RN) Decelerations: Late (Kourtney Vitrano, RN) Comments: Indeterminate deceleration d/t broken tracing; RN at bedside performing interventions and adjusting US (Kourtney Vitrano, RN) Datetime: 07/21/2016 13:55 Patient Care Comments: A. Emmel, CNM @ bedside. (Ginger Jimenesrachid, ) Datetime: 07/21/2016 13:51 Patient Position/Activity: Hands-Knees (Adilia Palmerka, RN) Datetime: 07/21/2016 13:45 Monitor Mode: External (Kourtney Vitrano, RN) Frequency (min): 2-3.5 (Kourtney Vitrano, RN) Quality: Moderate to Strong (Kourtney Vitrano, RN) Duration (sec): 50-80 (Kourtney Vitrano, RN) Duration Criteria: Less than Two 120 Second Contractions (Kourtney Vitrano, RN) Pattern: Normal: <= 5 Contractions in 10 Minutes (Kourtney Vitrano, RN) Resting Tone (Palpate): Relaxed (Kourtney Vitrano, RN) Monitor Mode: External US (Kourtney Vitrano, RN) FHR Baseline Rate : 140 (Kourtney Vitrano, RN) Variability: Minimal - Undetectable to <=5 bpm (Kourtney Vitrano, RN) Accelerations: None (Kourtney Vitrano, RN) Decelerations: Late (Kourtney Vitrano, RN) Datetime: 07/21/2016 13:37 Oxygen Method: Non-Rebreather (Adilia Marhefka, RN) Datetime: 07/21/2016 13:32 Pitocin (milliunit): Pitocin Discontinued (Adilia Humphries RN) IV/Blood Work: IV Bolus Started (Adilia Maryfka, RN) Datetime: 07/21/2016 13:30 Monitor Mode: External (Kourtney Vitrano, RN) Frequency (min): 2-4 (Kourtney Vitrano, RN) Quality: Moderate to Strong (Kourtney Vitrano, RN) Duration (sec): 60-90 (Kourtney Vitrano, RN) Duration Criteria: Less than Two 120 Second Contractions (Kourtney Vitrano, RN) Pattern: Normal: <= 5 Contractions in 10 Minutes (Kourtney Vitrano, RN) Resting Tone (Palpate): Relaxed (Kourtney Vitrano, RN) Monitor Mode: External US (Kourtney Vitrano, RN) Monitor Mode: External US (Adilia Marhefka, RN) FHR Baseline Rate : 150 (Kourtney Vitrano, RN) FHR Baseline Rate : 155 (Adilia Marhefka, RN) FHR Baseline Changes: No Baseline Change (Adilia Marhefka, RN) Variability: Moderate 6-25 bpm (Kourtney Vitrano, RN) Variability: Moderate 6-25 bpm (Adilia Marhefka, RN) Accelerations: None (Kourtney Vitrano, RN) Accelerations: None (Adilia Marhefka, RN) Decelerations: Late (Kourtney Vitrano, RN) Decelerations: Late (Adilia Marhefka, RN) Pitocin (milliunit): Pitocin Remains (milliunits) @ (Annotations: 12) (Adilia Humphries RN) Datetime: 07/21/2016 13:28 Patient Position/Activity: Right Lateral; Peanut Ball (Adilia Humphries RN) Datetime: 07/21/2016 13:26 NBP Sys/Juany/Mean (mmHg): 124 (QS system process) : 57 (QS system process) : 78 (QS system process) Pulse: 66 (QS system process) Dilatation (cm): 6.0 (Adilia Humphries RN) Effacement (%): 80 (Adilia Humphries RN) Station: -1 (Adilia Humphries RN) Exam by: Coby Humphries RN (Adilia Humphries RN) Vaginal Bleeding: Scant (Adilia Humphries RN) Cervix, Consistency: Soft (Adilia Humphries RN) Cervix, Position: Midposition (Adilia Marhefka, RN) LaborFlag: Labor (QS system process) Datetime: 07/21/2016 13:15 Monitor Mode: External (Kourtney Vitrano, RN) Frequency (min): 2-3.5 (Kourtney Vitrano, RN) Quality: Moderate to Strong (Kourtney Vitrano, RN) Duration (sec): 60-90 (Kourtney Vitrano, RN) Duration Criteria: Less than Two 120 Second Contractions (Kourtney Vitrano, RN) Pattern: Normal: <= 5 Contractions in 10 Minutes (Kourtney Vitrano, RN) Resting Tone (Palpate): Relaxed (Kourtney Vitrano, RN) Monitor Mode: External US (Kourtney Vitrano, RN) Monitor Mode: External US (Adilia Maryfka, RN) FHR Baseline Rate : 150 (Kourtney Vitrano, RN) FHR Baseline Rate : 155 (Adilia Marhefka, RN) FHR Baseline Changes: No Baseline Change (Adilia Marhefka, RN) Variability: Moderate 6-25 bpm (Kourtney Vitrano, RN) Variability: Moderate 6-25 bpm (Adilia Marhefka, RN) Accelerations: None (Kourtney Vitrano, RN) Accelerations: None (Adilia Marhefka, RN) Decelerations: Late; Variable (Kourtney Vitrano, RN) Decelerations: Late (Adilia Marhefka, RN) Pitocin (milliunit): Pitocin Remains (milliunits) @ (Annotations: 12) (Adilia Marhefka, RN) Datetime: 07/21/2016 13:11 Patient Position/Activity: Left Lateral; Peanut Ball; Low Fowlers (Adilia Hernandezfka, RN) Datetime: 07/21/2016 13:00 Monitor Mode: External (Adilia Humphries, RN) Frequency (min): 3-4 (Adilia Humphries, RN) Quality: Mild/Moderate (Adilia Humphries, RN) Duration (sec): 80-110 (Adilia Humphries, RN) Resting Tone (Palpate): Relaxed (Adilia Humphries, RN) Monitor Mode: External US (Adilia Humphries, RN) FHR Baseline Rate : 145 (Adilia Humphries, RN) FHR Baseline Changes: No Baseline Change (Adilia Humphries, RN) Variability: Moderate 6-25 bpm (Adilia Humphries, RN) Accelerations: None (Adilia Palmerka, RN) Decelerations: Early; Variable (Adilia Humphries, RN) Pitocin (milliunit): Pitocin Increased to (milliunits) @ (Annotations: 12) (Adilia Humphries, RN) Datetime: 07/21/2016 12:56 NBP Sys/Juany/Mean (mmHg): 104 (QS system process) : 57 (QS system process) : 78 (QS system process) Pulse: 67 (QS system process) LaborFlag: Labor (QS system process) Datetime: 07/21/2016 12:45 Monitor Mode: External; Palpation (Adilia Humphries RN) Frequency (min): 2-4 (Adilia Humphries RN) Quality: Mild/Moderate (Adilia Humphries RN) Duration (sec): 80-100 (Adilia Humphries RN) Resting Tone (Palpate): Relaxed (Adilia Humphries RN) Monitor Mode: External US (Adilia Humphries RN) FHR Baseline Rate : 140 (Adilia Humphries RN) FHR Baseline Changes: No Baseline Change (Adilia Humphries RN) Variability: Moderate 6-25 bpm (Adilia Humphries RN) Accelerations: 10X10 (Adilia Humphries RN) Decelerations: Early (Adilia Marhefka, RN) Pitocin (milliunit): Pitocin Increased to (milliunits) @ (Annotations: 10) (Adilia Marhefka, RN) Datetime: 07/21/2016 12:30 Monitor Mode: External (Adilia Palmerka, RN) Frequency (min): 2-4 (Adilia Maryfka, RN) Quality: Mild/Moderate (Adilia Maryfka, RN) Duration (sec): 90-100 (Adilia Maryfka, RN) Resting Tone (Palpate): Relaxed (Adilia Marhefka, RN) Monitor Mode: External US (Adilia Hernandezfka, RN) FHR Baseline Rate : 145 (Adilia Marlesliefka, RN) FHR Baseline Changes: No Baseline Change (Adilia Marhefka, RN) Variability: Minimal - Undetectable to <=5 bpm (Adilia Marhefka, RN) Decelerations: Early; Late; Variable (Adilia Marhefka, RN) Pitocin (milliunit): Pitocin Remains (milliunits) @ (Annotations: 8) (Adilia Marhefka, RN) Datetime: 07/21/2016 12:25 NBP Sys/Juany/Mean (mmHg): 111 (QS system process) : 56 (QS system process) : 79 (QS system process) Pulse: 66 (QS system process) Respirations: 16 (Adilia Marhefka, RN) LaborFlag: Labor (QS system process) Datetime: 07/21/2016 12:22 Patient Position/Activity: Right Lateral; Peanut Ball; Low Fowlers (Adilia Marhefka, RN) Datetime: 07/21/2016 12:19 NBP Sys/Juany/Mean (mmHg): 106 (QS system process) : 56 (QS system process) : 78 (QS system process) Pulse: 65 (QS system process) Respirations: 16 (Adilia Marhefka, RN) Temperature (F): 97.6 (Adilia Marhefka, RN) Temperature (C): 36.4 (QS system process) Temperature Route: Oral (Adilia Kristel, RN) LaborFlag: Labor (QS system process) Datetime: 07/21/2016 12:15 Monitor Mode: External US (Adilia Marhefka, RN) FHR Baseline Rate : 145 (Adilia Marhefka, RN) FHR Baseline Changes: No Baseline Change (Adilia Marhefka, RN) Variability: Moderate 6-25 bpm (Adilia Marhefka, RN) Accelerations: None (Adilia Marhefka, RN) Decelerations: Early; Late; Variable (Adilia Marhefka, RN) Pitocin (milliunit): Pitocin Remains (milliunits) @ 8 (Adilia Marhefka, RN) Datetime: 07/21/2016 12:13 NBP Sys/Juany/Mean (mmHg): 98 (QS system process) : 56 (QS system process) : 73 (QS system process) Pulse: 67 (QS system process) LaborFlag: Labor (QS system process) Datetime: 07/21/2016 12:12 Medication Comments: 5 mg ephedrine given via IV (Adilia Humphries RN) Datetime: 07/21/2016 12:00 NBP Sys/Juany/Mean (mmHg): 120 (QS system process) : 75 (QS system process) : 88 (QS system process) Pulse: 73 (QS system process) Monitor Mode: External; Palpation (Adilia Humphries RN) Frequency (min): 2-3 (Adilia Humphries RN) Quality: Mild/Moderate (Adilia Humphries RN) Duration (sec): 70-80 (Adilia Humphries RN) Resting Tone (Palpate): Relaxed (Adilia Humphries RN) Monitor Mode: External US (Adilia Humphries RN) FHR Baseline Rate : 140 (Adilia Humphries RN) FHR Baseline Changes: No Baseline Change (Adilia Humphries RN) Variability: Moderate 6-25 bpm (Adilia Humphries RN) Accelerations: None (Adilia Humphries RN) Decelerations: Late (Adilia Humphries RN) Pitocin (milliunit): Pitocin Remains (milliunits) @ (Annotations: 8) (Adilia Humphries RN) LaborFlag: Labor (QS system process) Datetime: 07/21/2016 11:50 Patient Position/Activity: Right Lateral; Semi-Fowlers (Adilia Humphries, RN) Datetime: 07/21/2016 11:45 Monitor Mode: External (Adilia Humphries RN) Frequency (min): 2-5 (Adilia Humphries RN) Quality: Mild/Moderate (Adilia Humphries, RN) Duration (sec): 40-60 (Adilia Humphries, RN) Resting Tone (Palpate): Relaxed (Adilia Humphries RN) Monitor Mode: External US (Adilia Humphries RN) FHR Baseline Rate : 145 (Adilia Humphries RN) FHR Baseline Changes: No Baseline Change (Adilia Humphries RN) Variability: Moderate 6-25 bpm (Adilia Humphries RN) Accelerations: None (Adilia Humphries, RN) Decelerations: None (Adilia Hernandezamina, RN) Pitocin (milliunit): Pitocin Increased to (milliunits) @ (Annotations: 8) (Adilia Humphries, TAMARA) Datetime: 07/21/2016 11:44 NBP Sys/Juany/Mean (mmHg): 119 (QS system process) : 57 (QS system process) : 80 (QS system process) Pulse: 75 (QS system process) LaborFlag: Labor (QS system process) Datetime: 07/21/2016 11:42 NBP Sys/Juany/Mean (mmHg): 125 (QS system process) : 59 (QS system process) : 84 (QS system process) Pulse: 88 (QS system process) LaborFlag: Labor (QS system process) Datetime: 07/21/2016 11:41 NBP Sys/Juany/Mean (mmHg): 125 (QS system process) : 62 (QS system process) : 88 (QS system process) Pulse: 71 (QS system process) LaborFlag: Labor (QS system process) Datetime: 07/21/2016 11:40 NBP Sys/Juany/Mean (mmHg): 124 (QS system process) : 57 (QS system process) : 82 (QS system process) Pulse: 80 (QS system process) I/O Interventions: Prado Cath Inserted (Adilia Humphries RN) LaborFlag: Labor (QS system process) Datetime: 07/21/2016 11:39 NBP Sys/Juany/Mean (mmHg): 126 (QS system process) : 60 (QS system process) : 82 (QS system process) Pulse: 76 (QS system process) LaborFlag: Labor (QS system process) Datetime: 07/21/2016 11:38 NBP Sys/Juany/Mean (mmHg): 129 (QS system process) : 71 (QS system process) : 92 (QS system process) Pulse: 78 (QS system process) LaborFlag: Labor (QS system process) Datetime: 07/21/2016 11:37 NBP Sys/Juany/Mean (mmHg): 126 (QS system process) : 60 (QS system process) : 86 (QS system process) Pulse: 70 (QS system process) LaborFlag: Labor (QS system process) Datetime: 07/21/2016 11:35 NBP Sys/Juany/Mean (mmHg): 130 (QS system process) : 62 (QS system process) : 89 (QS system process) Pulse: 86 (QS system process) LaborFlag: Labor (QS system process) Datetime: 07/21/2016 11:34 NBP Sys/Juany/Mean (mmHg): 132 (QS system process) NBP Sys/Juany/Mean (mmHg): 141 (QS system process) : 56 (QS system process) : 64 (QS system process) : 87 (QS system process) : 92 (QS system process) Pulse: 73 (QS system process) Pulse: 75 (QS system process) Epidural Procedure: Loading Dose (Adilia Marhefka, RN) LaborFlag: Labor (QS system process) Datetime: 07/21/2016 11:33 Epidural Procedure: Cath Placed (Adilia Marhefka, RN) Datetime: 07/21/2016 11:32 Epidural Procedure: Test Dose (Adilia Marhefka, RN) Datetime: 07/21/2016 11:31 Procedure Verify: Correct Patient Identity; Correct Side and Site are Marked; Accurate Procedure Consent Form; Agreement on Procedure to be Done; Correct Patient Position; Relevant Images and Results are Properly Labeled and Displayed; Addressed Need to Administer Antibiotics or Fluids for Irrigation; Safety Precautions Based on Patient History or Medication Use (Adilia Humphries RN) Anesthesia Plans: Epidural (Adilia Humphries RN) Epidural Positioning: Sitting (Adilia Marhefka, RN) Datetime: 07/21/2016 11:30 Monitor Mode: External (Adilia Humphries RN) Frequency (min): 2-3 (Adilia Humphries RN) Quality: Mild/Moderate (Adilia Humphries RN) Duration (sec): 50-80 (Adilia Humphries RN) Resting Tone (Palpate): Relaxed (Adilia Humphries RN) Monitor Mode: External US (Adilia Humphries RN) FHR Baseline Rate : 145 (Adilia Humphries RN) FHR Baseline Changes: No Baseline Change (Adilia Humphries RN) Variability: Moderate 6-25 bpm (Adilia Humphries RN) Accelerations: None (Adilia Humphries RN) Decelerations: Early (Adilia Humphries RN) Pitocin (milliunit): Pitocin Remains (milliunits) @ (Annotations: 6) (Adilia Humphries RN) Datetime: 07/21/2016 11:27 Procedure Verify: Correct Patient Identity; Correct Side and Site are Marked; Accurate Procedure Consent Form; Agreement on Procedure to be Done; Correct Patient Position; Relevant Images and Results are Properly Labeled and Displayed; Addressed Need to Administer Antibiotics or Fluids for Irrigation; Safety Precautions Based on Patient History or Medication Use (Adilia Humphries RN) Anesthesia Plans: Epidural (Adilia Humphries RN) Epidural Positioning: Sitting (Adilia Humphries RN) Anesthesia Comments: Dr. Salvador @ bedside. (Adilia Humphries RN) Datetime: 07/21/2016 11:26 Procedure Verify: Correct Patient Identity; Correct Side and Site are Marked; Accurate Procedure Consent Form; Agreement on Procedure to be Done; Correct Patient Position; Relevant Images and Results are Properly Labeled and Displayed; Addressed Need to Administer Antibiotics or Fluids for Irrigation; Safety Precautions Based on Patient History or Medication Use (Adilia Humphries RN) Anesthesia Plans: Epidural (Adilia Humphries RN) Datetime: 07/21/2016 11:15 Monitor Mode: External; Palpation (Adilia Humphries RN) Frequency (min): 2-4 (Adilia Humphries RN) Quality: Mild/Moderate (Adilia Humphries RN) Duration (sec): 70-80 (Adilia Humphries RN) Resting Tone (Palpate): Relaxed (Adilia Humphries RN) Monitor Mode: External US (Adilia Humphries RN) FHR Baseline Rate : 150 (Adilia Humphries RN) FHR Baseline Changes: No Baseline Change (Adilia Humphries RN) Variability: Moderate 6-25 bpm (Adilia Marhefka, RN) Accelerations: None (Adilia Marhefka, RN) Decelerations: None (Adilia Marhefka, RN) Pitocin (milliunit): Pitocin Remains (milliunits) @ (Annotations: 6) (Adilia Marhefka, RN) Datetime: 07/21/2016 11:14 NBP Sys/Juany/Mean (mmHg): 124 (QS system process) : 72 (QS system process) : 93 (QS system process) Pulse: 63 (QS system process) LaborFlag: Labor (QS system process) Datetime: 07/21/2016 11:00 Monitor Mode: External (Adilia Estelaka, RN) Frequency (min): 9 (Adilia Estelaka, RN) Quality: Mild (Adilia Marhefka, RN) Duration (sec): 60 (Adilia Marhefka, RN) Resting Tone (Palpate): Relaxed (Adilia Humphries, RN) Monitor Mode: External US (Adilia Marhefka, RN) FHR Baseline Rate : 140 (Adilia Marlesliefka, RN) FHR Baseline Changes: No Baseline Change (Adilia Humphries, RN) Variability: Moderate 6-25 bpm (Adilia Hernandezfka, RN) Accelerations: 15X15 (Adilia Hernandezfka, RN) Decelerations: None (Adilia Humphries, RN) Pitocin (milliunit): Pitocin Increased to (milliunits) @ (Annotations: 6) (Adilia Humphries, RN) Datetime: 07/21/2016 10:45 Monitor Mode: External (Adilia Humphries, TAMARA) Frequency (min): 2-5 (Adilia Humphries, TAMARA) Quality: Mild (Adilia Humphries RN) Duration (sec): 50-70 (Adilia Humphries, RN) Resting Tone (Palpate): Relaxed (Adilia Humphries, RN) Monitor Mode: External US (Adilia Humphries, RN) FHR Baseline Rate : 140 (Adilia Hernandezfka, RN) FHR Baseline Changes: No Baseline Change (Adilia Palmerka, RN) Variability: Moderate 6-25 bpm (Adilia Hernandezfka, RN) Accelerations: None (Adilia Hernandezfka, RN) Decelerations: None (Adilia Humphries, RN) Pitocin (milliunit): Pitocin Remains (milliunits) @ (Annotations: 4) (Adilia Humphries, TAMARA) Patient Care Comments: Pt vomiting (Adilia Humphries, RN) Datetime: 07/21/2016 10:44 NBP Sys/Juany/Mean (mmHg): 145 (QS system process) : 71 (QS system process) : 102 (QS system process) Pulse: 62 (QS system process) LaborFlag: Labor (QS system process) Datetime: 07/21/2016 10:30 Monitor Mode: External (Adilia Humphries, RN) Frequency (min): 3-8 (Adilia Humphries, RN) Quality: Mild (Adilia Humphries RN) Duration (sec): 50-70 (Adilia Humphries, RN) Resting Tone (Palpate): Relaxed (Adilia Humphries, RN) Monitor Mode: External US (Adilia Humphries, RN) FHR Baseline Rate : 140 (Adilia Humphries RN) FHR Baseline Changes: No Baseline Change (Adilia Humphries RN) Variability: Moderate 6-25 bpm (Adilia Humphries, RN) Accelerations: None (Adilia Humphries, RN) Decelerations: None (Adilia Humphries RN) Pitocin (milliunit): Pitocin Remains (milliunits) @ (Annotations: 4) (Adilia Marhefka, RN) Datetime: 07/21/2016 10:15 Monitor Mode: External (Adilia Marhefka, RN) Frequency (min): 2-5 (Adilia Marhefka, RN) Quality: Mild (Adilia Marhefka, RN) Duration (sec): 40-100 (Adilia Marhefka, RN) Resting Tone (Palpate): Relaxed (Adilia Marhefka, RN) Monitor Mode: External US (Adilia Marhefka, RN) FHR Baseline Rate : 140 (Adilia Marhefka, RN) FHR Baseline Changes: No Baseline Change (Adilia Marhefka, RN) Variability: Moderate 6-25 bpm (Adilia Marhefka, RN) Accelerations: 15X15 (Adilia Marhefka, RN) Decelerations: None (Adilia Marhefka, RN) Pitocin (milliunit): Pitocin Increased to (milliunits) @ (Annotations: 4) (Adilia Marhefka, RN) Datetime: 07/21/2016 10:12 Membrane Status: Ruptured (Adilia Humphries, TAMARA) Membranes Rupture Method: Artificial (Adilia Humphries, RN) Amniotic Fluid Color: Clear (Adilia Hernandezfka, RN) Amniotic Fluid Amount: Small (Adilia Marhefka, RN) Datetime: 07/21/2016 10:10 Dilatation (cm): 1.5 (Adilia Humphries, RN) Effacement (%): 80 (Adilia Humphries, RN) Station: -1 (Adilia Humphries, TAMARA) Exam by: Azael Malik CNM (Adilia Humphries, RN) Vaginal Bleeding: None (Adilia Humphries, RN) Cervix, Consistency: Moderate (Adilia Hernandezfmorgan, RN) Cervix, Position: Midposition (Adilia Humphries, RN) Datetime: 07/21/2016 10:00 Monitor Mode: External; Palpation (Adilia Humphries, RN) Frequency (min): Irregular (Adilia Humphries, RN) Quality: Mild (Adilia Hernandezfka, RN) Duration (sec): 60-80 (Adilia Hernandezfmorgan, RN) Resting Tone (Palpate): Relaxed (Adilia Humphries, RN) Monitor Mode: External US (Adilia Humphries, RN) FHR Baseline Rate : 135 (Adilia Maryfka, RN) FHR Baseline Changes: No Baseline Change (Adilia Hernandezfka, RN) Variability: Moderate 6-25 bpm (Adilia Maryfka, RN) Accelerations: 15X15 (Adilia Marlesliefka, RN) Decelerations: None (Adilia Hernandezfka, RN) Pitocin (milliunit): Pitocin Started (milliunits) @ 2 (Adilia Hernandezfka, RN) Datetime: 07/21/2016 09:53 I/O Interventions: Up to BR (Adilia Humphries, RN) Datetime: 07/21/2016 08:28 Patient Care Comments: Monitors removed for patient to shower and eat. (Adilia Humphries, RN) Datetime: 07/21/2016 08:26 Medication Comments: Cervidil removed (Adilia Marhefka, RN) Datetime: 07/21/2016 08:00 Monitor Mode: External (Adilia Marhefka, RN) Frequency (min): Irregular (Adilia Marhefka, RN) Quality: Mild (Adilia Marhefka, RN) Duration (sec): 60-100 (Adilia Marhefka, RN) Resting Tone (Palpate): Relaxed (Adilia Marhefka, RN) Monitor Mode: External US (Adilia Marhefka, RN) FHR Baseline Rate : 140 (Adilia Marhefka, RN) FHR Baseline Changes: No Baseline Change (Adilia Marhefka, RN) Variability: Moderate 6-25 bpm (Adilia Marhefka, RN) Accelerations: 15X15 (Adilia Marhefka, RN) Decelerations: Variable (Adilia Marhefka, RN) Datetime: 07/21/2016 07:43 Level of Consciousness: Fully Conscious (Adilia Marhefka, RN) DTR's/Clonus: DTRs 2+; No Clonus (Adilia Marhefka, RN) Headache: Denies (Adilia Marhefka, RN) Breath Sounds, Left: Clear and Equal (Adilia Marhefka, RN) Breath Sounds, Right: Clear and Equal (Adilia Marhefka, RN) Nausea/Vomiting: Denies (Adilia Marhefka, RN) RUQ Epigastric Pain: Denies (Adilia Marhefka, RN) Datetime: 07/21/2016 07:30 Monitor Mode: External (Adilia Marhefka, RN) Frequency (min): 2-5 (Adilia Marhefka, RN) Quality: Mild (Adilia Marhefka, RN) Duration (sec): 40-110 (Dailia Marhefka, RN) Resting Tone (Palpate): Relaxed (Adilia Marhefka, RN) Monitor Mode: External US (Adilia Marhefka, RN) FHR Baseline Rate : 130 (Adilia Marhefka, RN) FHR Baseline Changes: No Baseline Change (Adilia Marhefka, RN) Variability: Moderate 6-25 bpm (Adilia Marhefka, RN) Accelerations: 15X15 (Adilia Marhefka, RN) Decelerations: None (Adilia Marhefka, RN) Datetime: 07/21/2016 07:29 NBP Sys/Juany/Mean (mmHg): 107 (QS system process) : 59 (QS system process) : 75 (QS system process) Pulse: 67 (QS system process) Respirations: 16 (Adilia Marhefka, RN) Temperature (F): 97.8 (Adilia Marhefka, RN) Temperature (C): 36.6 (QS system process) Temperature Route: Oral (Adilia Marhefka, RN) Pain Scale: 0 (Adilia Marhefka, RN) Pain Presence: None/Denies (Adilia Marhefka, RN) Pain Type: N/A (Adilia Marhefka, RN) Pain Goal: 0 (Adilia Marhefka, RN) Pain Relief Measures: Comfort Measures (Adilia Marhefka, RN) LaborFlag: Labor (QS system process) Datetime: 07/21/2016 07:20 I/O Interventions: Up to BR (Adilia Humphries, RN) Datetime: 07/21/2016 07:19 Communication: Report Given to @ TAMARA Randall; care relinquished at this time. (Sue Bahena RN) Datetime: 07/21/2016 07:00 Monitor Mode: External (Adilia Humphries, RN) Frequency (min): 2-6 (Adilia Humphries, RN) Quality: Mild (Adilia Humphries, RN) Duration (sec): 40-80 (Adilia Humphries, RN) Resting Tone (Palpate): Relaxed (Adilia Humphries, RN) Monitor Mode: External US (Adilia Humphries, RN) FHR Baseline Rate : 135 (Adilia Humphries RN) FHR Baseline Changes: No Baseline Change (Adilia Humphries, RN) Variability: Moderate 6-25 bpm (Adilia Humphries RN) Accelerations: 15X15 (Adilia Humphries RN) Decelerations: None (Adilia Humphries RN)
[2016-07-21] MEDS ORDERED: ACETAMINOPHEN WITH CODEINE #3 TABLET PO PRN (20:54)
[2016-07-21] MEDS: IBUPROFEN 800 MG TABLET PO SCH (21:43)
[2016-07-21] MEDS: ACETAMINOPHEN WITH CODEINE #3 TABLET PO PRN (21:44)
[2016-07-21] MEDS: FAMOTIDINE 20 MG TABLET PO SCH (21:48)
[2016-07-22] MEDS: IBUPROFEN 800 MG TABLET PO SCH ×3 (04:31→21:46)
[2016-07-22] MEDS: ACETAMINOPHEN WITH CODEINE #3 TABLET PO PRN (04:32)
--- NOTE | 2016-07-22 06:01 | L&D Current Admission ---
Current Admit Datetime Report Generated by CPN: 07/22/2016 06:00 ADMISSION INFORMATION Current Admit Date/Time: 07/20/2016 18:38 (07/20/2016 18:38:Adilia Humphries RN) Reason for Admission: Induction of Labor (07/20/2016 18:38:Adilia Humphries RN) Chief Complaint: Scheduled Induction of Labor (07/20/2016 18:43:Adilia Humphries RN) Medications During : Vitamin; Buprenorphine (Subutex) (07/20/2016 18:38:Adilia Humphries RN) EGA per Dates: 40.1 (07/20/2016 18:38:QS system process) Method of Arrival: Ambulatory (07/20/2016 18:38:Adilia Humphries RN) Admitted From: Home (07/20/2016 18:38:Adilia Humphries RN) Reason for Induction: Other (07/20/2016 18:38:Adilia Humphries RN) Reason for Induction- Other: AMA (07/20/2016 18:38:Adilia Humphries RN) Records Available: Yes (07/20/2016 18:38:Adilia Humphries RN) General Admission Information: Reviewed; Updated; Confirmed (07/20/2016 18:38:Adilia Humphries RN) General Admission Reviewed By: Coby Horowitz RN (07/20/2016 18:38:Adilia Humphries RN) BELONGINGS/ADVANCED DIRECTIVES Valuables/Personal Effects: Cell Phone (07/20/2016 18:38:Adilia Humphries RN) Other Belongings: See Belongings sheet (07/20/2016 18:38:Adilia Humphries RN) Disposition of Belongings: Sent Home (07/20/2016 18:38:Adilia Humphries RN) Advance Direct for Healthcare: No, and Wants No Information (07/20/2016 18:38:Adilia Humphries RN) Durable Power of Carriage Rider: No (07/20/2016 18:38:Adilia Humphries RN) Living Will: No (07/20/2016 18:38:Adilia Humphries RN) Organ Donor: Yes (07/20/2016 18:38:Adilia Humphries RN) Pt Rights Information Given: Yes (07/20/2016 18:38:Adilia Humphries RN) Pt Understands Pt Rights: Yes (07/20/2016 18:38:Adilia Humphries RN) LEARNING ASSESSMENT Knowledge Level: Understands L_D Process; Understands Care Activities; Had Pre-Hospital Education; Understands Diagnosis (07/20/2016 18:38:Adilia Humphries RN) Barriers to Learning: None (07/20/2016 18:38:Adilia Humphries RN) Learning Readiness: Motivated (07/20/2016 18:38:Adilia Humphries RN) Learns Best By: 1 to 1 Instruction (07/20/2016 18:38:Adilia Humphries RN) Learning Needs: Labor and Delivery Process; Pain Management; Symptoms to Report; Treatment Plan; Medication; Diagnosis; Nutrition; Equipment; Infant Care; Community Resources (07/20/2016 18:38:Adilia Humphries RN) DOMESTIC VIOLANCE SCREENING Dom Viol Threatened/Hurt: No (07/20/2016 18:38:Adilia Humphries RN) Hx of Abuse/Neglect past 2yrs: No (07/20/2016 18:38:Adilia Humphries RN) Feel Unsafe Going Home: No (07/20/2016 18:38:Adilia Humphries RN) Addt'l Observ Indicating Abuse: No (07/20/2016 18:38:Adilia Humphries RN) Reason Unable to Complete Screen: N/A, Screen Completed (07/20/2016 18:38:Adilia Humphries RN) Considered Personal Harm/Suicide: No (07/20/2016 18:38:Adilia Humphries RN) NUTRITIONAL/FUNCTIONAL SCREENING Problem with Appetite >5 Days: No (07/20/2016 18:38:Adilia Humphries RN) Chew/Swallow Difficulties: No (07/20/2016 18:38:Adilia Humphries RN) Inappropriate Wt Gain/Loss: No (07/20/2016 18:38:Adilia Humphries RN) Presence Skin Breakdown/Ulcer: No (07/20/2016 18:38:Adilia Humphries RN) Special Diet: No (07/20/2016 18:38:Adilia Humphries RN) Pt Requests New Accounts Banking Representative Visit: No (07/20/2016 18:38:Adilia Humphries RN) Hx of Any of the Following?: N/A (07/20/2016 18:38:Adilia Humphries RN) New Diagnosis of: N/A (07/20/2016 18:38:Adilia Humphries RN) Requires Assist w/Ambulation: No (07/20/2016 18:38:Adilia Humphries RN) Uses Assist Device to Ambulate: No (07/20/2016 18:38:Adilia Humphries RN) Pt Requires Help w/ADL's: No (07/20/2016 18:38:Adilia Humphries RN)
--- NOTE | 2016-07-22 06:01 | L&D General Admission ---
General Admit Datetime Report Generated by CPN: 07/22/2016 06:00 INFORMATION Patient Age: 36 (06/16/2016 16:42:QS system process) EDC: 07/19/2016 00:00 (06/16/2016 16:59:Kourtney Fitzpatrick RN) : 3 (06/16/2016 16:59:Kourtney Fitzpatrick RN) Para: 1 (07/02/2016 11:05:Kourtney Fitzpatrick RN) Term: 1 (06/16/2016 16:59:Kourtney Fitzpatrick RN) : 0 (06/16/2016 16:59:Kourtney Fitzpatrick RN) Spontaneous Abortions: 1 (06/16/2016 16:59:Kourtney Fitzpatrick RN) Induced Abortions: 0 (06/16/2016 16:59:Kourtney Fitzpatrick RN) Livin (06/16/2016 16:59:Kourtney Fitzpatrick RN) Cesareans: 0 (06/16/2016 16:59:Kourtney Fitzpatrick RN) VBACs: 0 (06/16/2016 16:59:Kourtney Fitzpatrick RN) Ectopic: 0 (06/16/2016 16:59:Kourtney Fitzpatrick RN) Multiple Births: 0 (06/16/2016 16:59:Kourtney Fitzpatrick RN) Baby, Number in Womb: 1 (07/02/2016 11:05:PRANAV Childress) CARE Primary Driver'S License Examiner: [facility] (06/16/2016 16:59:Kourtney Fitzpatrick RN) Month of 1st Visit: 12/2015 (06/16/2016 16:59:Kourtney Fitzpatrick RN) Adequate Care: Yes (06/16/2016 16:59:Kourtney Fitzpatrick RN) Prepregnancy Weight (lb): 129 (06/16/2016 16:59:Kourtney Fitzpatrick RN) Prepregnancy Weight (kg): 58.6 (06/16/2016 16:59:QS system process) Height (in): 65 (06/16/2016 17:00:QS system process) ALLERGIES Medication Allergy: No (06/16/2016 16:59:Kourtney Fitzpatrick RN) Medication Allergies: No Known Allergies (07/09/2016) (07/09/2016 15:23:QS system process) Latex Allergy: No Latex Allergies (06/16/2016 16:59:Kourtney Fitzpatrick RN) Food Allergies: N/A (06/16/2016 16:59:Kourtney Fitzpatrick RN) Environmental Allergies: N/A (06/16/2016 16:59:Kourtney Fitzpatrick RN) COMMUNICATION Primary Language: Eritrean (06/16/2016 16:59:Kourtney Fitzpatrick RN) Medical Tx Preferred Language: Eritrean (06/16/2016 16:59:Kourtney Fitzpatrick RN) Communication Barrier(s): None (06/16/2016 16:59:Kourtney Fitzpatrick RN) DEMOGRAPHICS Address: [address] [place] [id number] (06/16/2016 16:42:QS system process) Zipcode: [address] (06/16/2016 16:42:QS system process) Home (06/16/2016 16:42:QS system process) N: [phone] (06/16/2016 16:42:QS system process) Next of Kin Name: JALEEL RAY (07/02/2016 10:30:QS system process) Next of Kin (07/02/2016 10:30:QS system process) Next of Kin Relationship: SPO (07/02/2016 10:30:QS system process) Date of : 1980 (06/16/2016 16:42:QS system process) Marital Status: (06/16/2016 16:42:QS system process) Sex: Female (06/16/2016 16:42:QS system process) Race: (06/16/2016 16:42:QS system process) Ethnicity: Non- or (06/16/2016 16:42:QS system process) Druze: None (06/16/2016 16:42:QS system process) DRUG AND ALCOHOL USE Alcohol: No (06/16/2016 16:59:Kourtney Fitzpatrick RN) Cigarettes: Current Everyday Smoker. [id number] (06/16/2016 16:59:Kourtney Fitzpatrick RN) Marijuana: No (06/16/2016 16:59:Kourtney Fitzpatrick RN) Cocaine: No (06/16/2016 16:59:Kourtney Fitzpatrick RN) Other Illicit Drugs: Yes (06/16/2016 16:59:Kourtney Fitzpatrick RN) Other Illicit Drug Comments: Hx heroine use; On Subutex (06/16/2016 16:59:Kourtneyjulia Fitzpatrick RN) VACCINE HISTORY Influenza Vaccine: Yes (06/16/2016 16:59:Kourtney Fitzpatrick RN) Pneumococcal Vaccine: No (06/16/2016 16:59:Kourtney Fitzpatrick RN) Tetanus Vaccine: Yes (06/16/2016 16:59:Kourtney Fitzpatrick RN) Tdap Vaccine: Yes (06/16/2016 16:59:Kourtney Fitzpatrick RN) Hepatitis B Vaccine: Yes (06/16/2016 16:59:Kourtney Fitzpatrick RN) Director Clinical Research: [facility] (06/16/2016 16:59:Kourtney Fitzpatrick RN) Feeding Preference: Formula (06/16/2016 16:59:Kourtney Fitzpatrick RN) Benefit of Breast Feed Discussed: Yes (06/16/2016 16:59:Adilia Humphries RN) Circumcision: N/A (06/16/2016 16:59:Kourtney Fitzpatrick RN) Classes Attended: No (06/16/2016 16:59:Kourtney Fitzpatrick RN) Tubal Ligation: No (06/16/2016 16:59:Kourtney Fitzpatrick RN) Tubal Authorization Signed: N/A (06/16/2016 16:59:Kourtney Fitzpatrick RN) Consent: N/A (06/16/2016 16:59:Kourtney Fitzpatrick RN) Consent Signed: N/A (06/16/2016 16:59:Kourtney Fitzpatrick RN) Pain Management Plans: Epidural (06/16/2016 16:59:Kourtney Fitzpatrick RN) Plans for Labor and Delivery: None (06/16/2016 16:59:Kourtney Fitzpatrick RN) Support Person: Jaleel Ray (06/16/2016 16:59:Kourtney Fitzpatrick RN) Support Person Relationship: (06/16/2016 16:59:Kourtney Fitzpatrick RN) Cultural/Spritual Practice: No (06/16/2016 16:59:Kourtney Fitzpatrick RN) Spir/Cult Dietary Needs: No (06/16/2016 16:59:Kourtney Fitzpatrick RN) LIVING SITUATION/DISCHARGE PLAN Living Arrangements: House (06/16/2016 16:59:Kourtney Fitzpatrick RN) Adequate Access to:: Electric; Heat; Refrigeration; Plumbing/Running water; Phone; Transportation (06/16/2016 16:59:Kourtney Fitzpatrick RN) WIC Program: Yes (06/16/2016 16:59:Kourtney Fitzpatrick RN) Discharge Environmental Department Manager Person: (06/16/2016 16:59:Kourtney Fitzpatrick RN) Person to Help after Discharge: (06/16/2016 16:59:Kourtney Fitzpatrick RN) Currently Using Commun Resources: Yes (06/16/2016 16:59:Kourtney Fitpzatrick RN) Specify Current Resource Used: WIC, Medicaid (06/16/2016 16:59:Kourtney Fitzpatrick RN) Outside Agency/Rand Cementer: No (06/16/2016 16:59:Kourtney Fitzpatrick RN) Car Seat for Discharge: Yes (06/16/2016 16:59:Kourtney Fitzpatrick RN) Adoption Requested: No (06/16/2016 16:59:Kourtney Fitzpatrick RN) Pt Contact w/infant Post : N/A (06/16/2016 16:59:Kourtney Fitzpatrick RN) LABS Blood Type: O Positive (06/16/2016 16:59:Adilia Humphries RN) Antibody Screen: Negative (06/16/2016 16:59:Adilia Humphries RN) Hemoglobin: 10.7 L (07/20/2016 19:10:QS system process) Hematocrit: 32.0 L (07/20/2016 19:10:QS system process) MCV: 86 (07/20/2016 19:10:QS system process) Group Beta Strep: Negative (06/16/2016 16:59:Adilia Humphries RN) Gonorrhea: Negative (06/16/2016 16:59:Adilia Humphries RN) Chlamydia: Negative (06/16/2016 16:59:Adilia Humphries RN) RPR/VDRL: Nonreactive (06/16/2016 16:59:Kourtney Fitzpatrick RN) HIV Exposure Test: Negative (06/16/2016 16:59:Kourtney Fitzpatrick RN) Rubella: Immune (06/16/2016 16:59:Adilia Humphries RN) Varicella: Non Susceptible (06/16/2016 16:59:Adilia Humphries RN) OB/PREVIOUS HISTORY History of Previous : No (06/16/2016 16:59:Kourtney Fitzpatrick RN) History of Gestational Diabetes: No (06/16/2016 16:59:Kourtney Fitzpatrick RN) History of PIH: No (06/16/2016 16:59:Kourtney Fitzpatrick RN) History of Incompetent Cervix: No (06/16/2016 16:59:Kourtney Fitzpatrick RN) History of Placenta Previa/Abrup: No (06/16/2016 16:59:Kourtney Fitzpatrick RN) History of Macrosomia: No (06/16/2016 16:59:Kourtney Fitzpatrick RN) History of IUGR: No (06/16/2016 16:59:Kourtney Fitzpatrick RN) History of Hemorrhage: No (06/16/2016 16:59:Kourtney Fitzpatrick RN) History of Loss/Stillborn: No (06/16/2016 16:59:Kourtney Fitzpatrick RN) History of : No (06/16/2016 16:59:Kourtney Fitzpatrick RN) History of D (Rh) Sensitization: No (06/16/2016 16:59:Kourtney Fitzpatrick RN) History Recurrent Loss/Stillborn: No (06/16/2016 16:59:Kourtney Fitzpatrick RN) History Depression/PP Depression: No (06/16/2016 16:59:Kourtney Fitzpatrick RN) History of Uterine Anomaly/LOU: No (06/16/2016 16:59:Kourtney Fitzpatrick RN) History of Infertility: No (06/16/2016 16:59:Kourtney Fitzpatrick RN) History of ART Treatment: No (06/16/2016 16:59:Kourtney Fitzpatrick RN) History of LOU: No (06/16/2016 16:59:Kourtney Fitzpatrick RN) Comments Obstetrical History: G1: 2008 SAB 8 weeks G2: 2010 baby boy, 41 weeks, 24 hours labor, 7 lb 9 oz G3: Current; Marginal cord insertion, AMA, Subutex; Sees MFM (06/16/2016 16:59:Kourtney Fitzpatrick RN) MEDICAL HISTORY Med Hx Diabetes: No (06/16/2016 16:59:Kourtney Fitzpatrick RN) Med Hx Hypertension: No (06/16/2016 16:59:Kourtney Fitzpatrick RN) Med Hx Heart Disease: No (06/16/2016 16:59:Kourtney Fitzpatrick RN) Med Hx Autoimmune Disorder: No (06/16/2016 16:59:Kourtney Fitzpatrick RN) Med Hx Kidney Disease/UTI: No (06/16/2016 16:59:Kourtney Fitzpatrick RN) Med Hx Neurologic/Epilepsy: No (06/16/2016 16:59:Kourtney Fitzpatrick RN) Med Hx Psychiatric Disorders: Yes (06/16/2016 16:59:Kourtney Fitzpatrick RN) Med Hx Hepatitis/Liver Disease: No (06/16/2016 16:59:Kourtney Fitzpatrick RN) Med Hx Varicosities/Phlebitis: No (06/16/2016 16:59:Kourtney Fitzpatrick RN) Med Hx Thyroid Dysfunction: No (06/16/2016 16:59:Kourtney Fitzpatrick RN) Med Hx Trauma/Violence: No (06/16/2016 16:59:Kourtney Fitzpatrick RN) Med Hx Blood Transfusion: No (06/16/2016 16:59:Kourtney Fitzpatrick RN) Med Hx Pulmonary (Asthma,TB): No (06/16/2016 16:59:Kourtney Fitzpatrick RN) Med Hx Breast: No (06/16/2016 16:59:Kourtney Fitzpatrick RN) Med Hx SURFACE SUPERVISOR Surgery: No (06/16/2016 16:59:Kourtney Fitzpatrick RN) Med Hx Hospitalization/Surgery: No (06/16/2016 16:59:Kourtney Fitzpatrick RN) Med Hx Anesthetic Complications: No (06/16/2016 16:59:Kourtney Fitzpatrick RN) Med Hx Abnormal Pap Smear: Yes (06/16/2016 16:59:Kourtney Fitzpatrick RN) Other Medical Diseases: No (06/16/2016 16:59:Kourtney Fitzpatrick RN) Med Hx Significant Family Hx: No (06/16/2016 16:59:Kourtney Fitzpatrick RN) Details of Med/Surg Hx: Psychiatric: Anxiety/Depression, Hx heroine abuse Abnormal Pap: 1999, Treated with colpo (06/16/2016 16:59:Kourtney Fitzpatrick RN) INFECTIOUS HISTORY Inf Hx Gonorrhea: No (06/16/2016 16:59:Kourtney Fitzpatrick RN) Inf Hx Chlamydia: No (06/16/2016 16:59:Kourtney Fitzpatrick RN) Inf Hx Syphilis: No (06/16/2016 16:59:Kourtney Fitzpatrick RN) Inf Hx HIV/AIDS: No (06/16/2016 16:59:Kourtney Fitzpatrick RN) Inf Hx Human Papilloma Virus: No (06/16/2016 16:59:Kourtney Fitzpatrick RN) Inf Hx Pt/Partner Genital Herpes: No (06/16/2016 16:59:Kourtney Fitzpatrick RN) Inf Hx Tuberculosis/Exposure: No (06/16/2016 16:59:Kourtney Fitzpatrick RN) Inf Hx Hepatitis B,C: No (06/16/2016 16:59:Kourtney Fiztpatrick RN) Inf Hx Rash or Viral Illness: No (06/16/2016 16:59:Kourtney Fitzpatrick RN) GENETIC HISTORY Gen Hx Age >=35 at ADRIENNE: No (06/16/2016 16:59:Kourtney Fitzpatrick RN) Gen Hx Thalassemia: No (06/16/2016 16:59:Kourtney Fitzpatrick RN) Gen Hx Congenital Heart Defect: No (06/16/2016 16:59:Kourtney Fitzpatrick RN) Gen Hx Neural Tube Defect: No (06/16/2016 16:59:Kourtney Fitzpatrick RN) Gen Hx Down's Syndrome: No (06/16/2016 16:59:Kourtney Fitzpatrick RN) Gen Hx Raheem-Sachs: No (06/16/2016 16:59:Kourtney Fitzpatrick RN) Gen Hx Diann: No (06/16/2016 16:59:Kourtney Fitzpatrick RN) Gen Hx Familial Dysautonomia: No (06/16/2016 16:59:Kourtney Fitzpatrick RN) Gen Hx Sickle Cell Disease/Trait: No (06/16/2016 16:59:Kourtney Fitzpatrick RN) Gen Hx Hemophilia/Blood Disorder: No (06/16/2016 16:59:Kourtney Fitzpatrick RN) Gen Hx Muscular Dystrophy: No (06/16/2016 16:59:Kourtney Fitzpatrick RN) Gen Hx Cystic Fibrosis: No (06/16/2016 16:59:Kourtney Fitzpatrick RN) Gen Hx Huntingtons Chorea: No (06/16/2016 16:59:Kourtney Fitzpatrick RN) Gen Hx Mental Retardation/Autism: No (06/16/2016 16:59:Kourtney Fitzpatrick RN) Gen Hx Tested for Fragile X: No (06/16/2016 16:59:Kourtney Fitzpatrick RN) Gen Hx Other Inher/Chromosomal: No (06/16/2016 16:59:Kourtney Fitzpatrick RN) Gen Hx Maternal Metabolic DO: No (06/16/2016 16:59:Kourtney Fitzpatrick RN) Gen Hx Pt Father or FOB Defect: No (06/16/2016 16:59:Kourtney Fitzpatrick RN) Gen Hx Other Genetic History: No (06/16/2016 16:59:Kourtney Fitzpatrick RN) Gen Hx Drugs/Meds since LMP: No (06/16/2016 16:59:Kourntey Fitzpatrick RN)
--- NOTE | 2016-07-22 06:16 | L&D Care Plan ---
LD CARE PLANS Datetime Report Generated by CPN: 07/22/2016 06:15 Datetime: 07/20/2016 18:00 Pain State: Risk For (Adilia Humphries RN) Related To: Labor and Delivery Process; Treatment and Procedures (Aidlia Humphries RN) Goal(s): Patients Pain will be Assessed and Managed; Patient will Verbalize Adequate Relief of Pain or the Ability to [place] with Current Pain (Adilia Humphries RN) Interventions: Assess Pain Severity on Scale of 0 (None) to 5 (Severe); Assess Type, Location and Intensity of Pain Each Time Client Reports Discomfort and Notify Provider if Unusal Pain Develops; Encourage Proper Breathing and Relaxation Techniques; Offer Alternatives Such as Repositioning, Calm Environment, Massages, Diversional Activities, Ice Pack, Splinting, and Ambulation; Administer Analgesics as Ordered; Assist with Epidural Placement as Appropriate; Evaluate Therapeutic Effectiveness of Medication and Treatments (Adilia Humphries RN) Outcome: Patient will Report Absence or Relief of Pain Consistent with Established Pain Goal (Adilia Humphries RN) Status: Ongoing (Adilia Humphries RN) Outcome: Patient will have a Decrease in Signs and Symptoms of Discomfort (Adilia Humphries RN) Status: Ongoing (Adilia Humphries RN) Outcome: Pain will be Controlled During Procedures (Adilia Humphries RN) Status: Ongoing (Adilia Humphries RN) Anxiety State: Risk For (Adilia Humphries RN) Related To: Labor and Delivery Process; Medical Interventions; Significant Life Event (Adilia Humphries RN) Goal(s): Patient will have Decreased Anxiety and be able to Function at Acceptable Levels (Adilia Humphries RN) Interventions: Assess Verbal and Nonverbal Behavioral Indicators of Anxiety; Assist Patient to Identify and Verbalize Symptoms of Anxiety; Identify and Demonstrate Techniques to Control Anxiety; Assist Patient with Coping Mechanisms to Manage Anxiety; Provide Theraputic Touch for the Patient; Explain to Patient, Using a Calm Reassuring Approach and Nonmedical Terms, All Activities, Procedures, and Concerns; Instruct Patient and Family about Post Discharge Care, Limitations, Symptoms to Report and Resources Available (Adilia Humphries RN) Outcome: Patient will Identify, Verbalize and Demonstrate Techniques to Control Anxiety (Adilia Humphries RN) Status: Ongoing (Adilia Humphries RN) Outcome: Patient's Posture, Facial Expressions, Gestures and Activity Level will Reflect Decreased Anxiety (Adilia Humphries RN) Status: Ongoing (Adilia Humphries RN) Outcome: Patient will Verbalize a Sense of Control and/or Acceptance of the Situation (Adilia Humphries RN) Status: Ongoing (Adilia Humphries RN) Status: Ongoing (Adilia Humphries RN) Knowledge Deficit State: Risk For (Adilia Humphries RN) Related To: Labor and Delivery Process; Treatment and Procedures; Impending Alterations in Family Dynamics (Adilia Humphries RN) Goal(s): Patient will Accurately Verbalize Understanding of Plan of Care and Treatment; Patient and Family will Accurately Verbalize Understanding of the Disease Process (Adilia Humphries RN) Interventions: Assess Motivation and Willingness of Patient/Family to Learn; Assess Preferred Learning Mode: One to One Instruction, Reading, Videos, Group Discussion or Demonstration; Assess Barriers to Learning: Pain, Emotional State, Language Barrier, Cognitive Impairment, Visual or Hearing Deficits; Assess Patient and Family Knowledge of Disease Process, Medications and Treatment; Discuss Therapy and/or Treatment Options, Describe Rationale Behind Management, Therapy and Treatment Recommendations; Instruct Patient and Family on Signs and Symptoms to Report; Instruct Patient and Family on Medication Effects and Side Effects; Provide Appropriate and Timely Education Using Multiple Techniques; Provide Patient and Family with Support Group Information and Resources; Give Clear and Thorough Explanations and Demonstrations (Adilia Humphries RN) Outcome: Patient and Family will Verbalize Understanding of Condition, Treatment and Signs and Symptoms to Report (Adilia Humphries RN) Status: Ongoing (Adilia Humphries RN) Outcome: Patient will Identify Perceived Learning Needs and Express Motivation to Learn (Adilia Humphries RN) Status: Ongoing (Adilia Humphries RN) Outcome: Patient will Verbalize Understanding of Desired Content, and/or Performs Desired Skill Prior to Discharge (Adilia Humphries RN) Status: Ongoing (Adilia Humphries RN) Infection State: Risk For (Adilia Humphries RN) Related To: Prolonged Labor or Induction; Invasive Procedures; Altered Tissue Integrity (Adilia Humphries RN) Goal(s): The Patient will be Free of Infection, Vital Signs Stable and Lab Work within Normal Parameters (Adilia Humphries RN) Interventions: Instruct and Reinforce Proper Handwashing, Hygiene, and Care Techniques to Patient and Family; Monitor Vital Signs; Monitor Patient for the Following Signs of Infection: Fever, Abdominal Tenderness, Unusual Discharge; Monitor Aminiotic Fluid, Urine and Lochia for Color and Odor; Observe Wounds, Incisions and Invasive Line Sites for Redness, Drainage and Edema; Assess IV Sites per Hospital Policy; Monitor Lab and Test Results and Notify Provider of Abnormal Findings; Assess Nutritional Status and Promote Good Nutrition (Adilia Humphries RN) Outcome: Patient will Remain Free of Infection (Adilia Humphries RN) Status: Ongoing (Adilia Humphries RN) Outcome: Infection will be Recognized Early to Allow for Prompt Treatment (Adilia Humphries RN) Status: Ongoing (Adilia Humphries RN) Outcome: Patient will have Vital Signs Within Expected Range (Adilia Humphries RN) Status: Ongoing (Adilia Humphries RN) Impaired Skin Integrity State: Risk For (Adilia Humphries RN) Related To: Vaginal Delivery; Invasive Procedures (Adilia Humphries RN) Goal(s): Patient will Maintain Optimal Skin Integrity, Free of Breakdown, Injury or Infection (Adilia Humphries RN) Interventions: Complete Screening for Pressure Ulcer Risk and Initiate Protocol per Hospital Policy; Monitor Site of Skin Impairment for Color Changes, Redness, Swelling, Warmth, Pain or Other Signs of Infection; Encourage and Assist with Position Changes; Monitor Patient's Mobility Status; Provide Adequate Nutrition and Fluids; Teach Patient Appropriate Hygienic Care; Teach Patient/Family Skin Care Management (Adilia Humphries RN) Outcome: Patient will not have Evidence of Injury Such as Skin Breakdown, Scrapes, Cuts, or Bruising (Adilia Humphries RN) Status: Ongoing (Adilia Humphries RN) Outcome: Patient will Report Any Altered Sensation or Pain at Site of Skin Impairment (Adilia Humphries RN) Status: Ongoing (Adilia Humphries RN) Outcome: Patients Incisions and Wounds will be without Signs or Symptoms of Infection (Adilia Humphries RN) Status: Ongoing (Adilia Humphries RN) Outcome: Patient will Demonstrate Understanding of Plan to Heal Skin and Prevent Reinjury and Verbalize Risk Factors (Adilia Humphries RN) Status: Ongoing (Adilia Humphries RN) Datetime: 07/20/2016 17:57 Pain State: Risk For (Adilia Humphries RN) Related To: Labor and Delivery Process; Treatment and Procedures (Adilia Humphries RN) Goal(s): Patients Pain will be Assessed and Managed; Patient will Verbalize Adequate Relief of Pain or the Ability to [place] with Current Pain (Adilia Humphries RN) Interventions: Assess Pain Severity on Scale of 0 (None) to 5 (Severe); Assess Type, Location and Intensity of Pain Each Time Client Reports Discomfort and Notify Provider if Unusal Pain Develops; Encourage Proper Breathing and Relaxation Techniques; Offer Alternatives Such as Repositioning, Calm Environment, Massages, Diversional Activities, Ice Pack, Splinting, and Ambulation; Administer Analgesics as Ordered; Assist with Epidural Placement as Appropriate; Evaluate Therapeutic Effectiveness of Medication and Treatments (Adilia Humphries RN) Outcome: Patient will Report Absence or Relief of Pain Consistent with Established Pain Goal (Adilia Humphries RN) Status: Ongoing (Adilia Humphries RN) Outcome: Patient will have a Decrease in Signs and Symptoms of Discomfort (Adilia Humphries RN) Status: Ongoing (Adilia Humphries RN) Outcome: Pain will be Controlled During Procedures (Adilia Humphries RN) Status: Ongoing (Adilia Humphries RN) Anxiety State: Risk For (Adilia Humphries RN) Related To: Labor and Delivery Process; Medical Interventions; Significant Life Event (Adilia Humphries RN) Goal(s): Patient will have Decreased Anxiety and be able to Function at Acceptable Levels (Adilia Humphries RN) Interventions: Assess Verbal and Nonverbal Behavioral Indicators of Anxiety; Assist Patient to Identify and Verbalize Symptoms of Anxiety; Identify and Demonstrate Techniques to Control Anxiety; Assist Patient with Coping Mechanisms to Manage Anxiety; Provide Theraputic Touch for the Patient; Explain to Patient, Using a Calm Reassuring Approach and Nonmedical Terms, All Activities, Procedures, and Concerns; Instruct Patient and Family about Post Discharge Care, Limitations, Symptoms to Report and Resources Available (Adilia Humphries RN) Outcome: Patient will Identify, Verbalize and Demonstrate Techniques to Control Anxiety (Adilia Humphries RN) Status: Ongoing (Adilia Humphries RN) Outcome: Patient's Posture, Facial Expressions, Gestures and Activity Level will Reflect Decreased Anxiety (Adilia Humphries RN) Status: Ongoing (Adilia Humphries RN) Outcome: Patient will Verbalize a Sense of Control and/or Acceptance of the Situation (Adilia Humphries RN) Status: Ongoing (Adilia Humphries RN) Status: Ongoing (Adilia Humphries RN) Knowledge Deficit State: Risk For (Adilia Humphries RN) Related To: Labor and Delivery Process; Treatment and Procedures; Impending Alterations in Family Dynamics (Adilia Humphries RN) Goal(s): Patient will Accurately Verbalize Understanding of Plan of Care and Treatment; Patient and Family will Accurately Verbalize Understanding of the Disease Process (Adilia Humphries RN) Interventions: Assess Motivation and Willingness of Patient/Family to Learn; Assess Preferred Learning Mode: One to One Instruction, Reading, Videos, Group Discussion or Demonstration; Assess Barriers to Learning: Pain, Emotional State, Language Barrier, Cognitive Impairment, Visual or Hearing Deficits; Assess Patient and Family Knowledge of Disease Process, Medications and Treatment; Discuss Therapy and/or Treatment Options, Describe Rationale Behind Management, Therapy and Treatment Recommendations; Instruct Patient and Family on Signs and Symptoms to Report; Instruct Patient and Family on Medication Effects and Side Effects; Provide Appropriate and Timely Education Using Multiple Techniques; Provide Patient and Family with Support Group Information and Resources; Give Clear and Thorough Explanations and Demonstrations (Adilia Humphries RN) Outcome: Patient and Family will Verbalize Understanding of Condition, Treatment and Signs and Symptoms to Report (Adilia Humphries RN) Status: Ongoing (Adilia Humphries RN) Outcome: Patient will Identify Perceived Learning Needs and Express Motivation to Learn (Adilia Humphries RN) Status: Ongoing (Adilia Humphries RN) Outcome: Patient will Verbalize Understanding of Desired Content, and/or Performs Desired Skill Prior to Discharge (Adilia Humphries RN) Status: Ongoing (Adilia Humphries RN) Infection State: Risk For (Adilia Humphries RN) Related To: Prolonged Labor or Induction; Invasive Procedures; Altered Tissue Integrity (Adilia Humphries RN) Goal(s): The Patient will be Free of Infection, Vital Signs Stable and Lab Work within Normal Parameters (Adilia Humphries RN) Interventions: Instruct and Reinforce Proper Handwashing, Hygiene, and Care Techniques to Patient and Family; Monitor Vital Signs; Monitor Patient for the Following Signs of Infection: Fever, Abdominal Tenderness, Unusual Discharge; Monitor Aminiotic Fluid, Urine and Lochia for Color and Odor; Observe Wounds, Incisions and Invasive Line Sites for Redness, Drainage and Edema; Assess IV Sites per Hospital Policy; Monitor Lab and Test Results and Notify Provider of Abnormal Findings; Assess Nutritional Status and Promote Good Nutrition (Adilia Humphries RN) Outcome: Patient will Remain Free of Infection (Adilia Humphries RN) Status: Ongoing (Adilia Humphries RN) Outcome: Infection will be Recognized Early to Allow for Prompt Treatment (Adilia Humphries RN) Status: Ongoing (Adilia Humphries RN) Outcome: Patient will have Vital Signs Within Expected Range (Adilia Humphries RN) Status: Ongoing (Adilia Humphries RN) Impaired Skin Integrity State: Risk For (Adilia Humphries RN) Related To: Vaginal Delivery; Invasive Procedures (Adilia Humphries RN) Goal(s): Patient will Maintain Optimal Skin Integrity, Free of Breakdown, Injury or Infection (Adilia Humphries RN) Interventions: Complete Screening for Pressure Ulcer Risk and Initiate Protocol per Hospital Policy; Monitor Site of Skin Impairment for Color Changes, Redness, Swelling, Warmth, Pain or Other Signs of Infection; Encourage and Assist with Position Changes; Monitor Patient's Mobility Status; Provide Adequate Nutrition and Fluids; Teach Patient Appropriate Hygienic Care; Teach Patient/Family Skin Care Management (Adilia Humphries RN) Outcome: Patient will not have Evidence of Injury Such as Skin Breakdown, Scrapes, Cuts, or Bruising (Adilia Humphries RN) Status: Ongoing (Adilia Humphries RN) Outcome: Patient will Report Any Altered Sensation or Pain at Site of Skin Impairment (Adilia Humphries RN) Status: Ongoing (Adilia Humphries RN) Outcome: Patients Incisions and Wounds will be without Signs or Symptoms of Infection (Adilia Humphries RN) Status: Ongoing (Adilia Humphries RN) Outcome: Patient will Demonstrate Understanding of Plan to Heal Skin and Prevent Reinjury and Verbalize Risk Factors (Adilia Humphries RN) Status: Ongoing (Adilia Humphries RN)
[2016-07-22 06:51] LABS: HEMATOCRIT 27.1 % (36.0-47.0); HGB HCT DIFFERENCE -0.1; MEAN CORPUSCULAR HEMOGLOBIN 28.6 pg (27.0-33.4); MEAN CORPUSCULAR VOLUME 87 fl (80-97); RED BLOOD COUNT 3.13 10^6/uL (3.72-5.28); RED CELL DISTRIBUTION WIDTH 13.6 % (11.5-14.0); WHITE BLOOD COUNT 16.9 10^3/uL (4.0-10.5)
--- NOTE | 2016-07-22 09:10 | PDOC PROGRESS REPORT ---
Subjective-OB Subjective: Post Delivery Day: 36 year old. Denies any needs at this time Doing well, no c/o, OOB in BR, voiding, bottle feeding, not wearing bra, hsb holding baby, scant lochia Physical Exam (OB) Vital Signs: Temp Pulse Resp BP Pulse Ox 97.6 F 78 16 112/60 99 07/22/16 08:31 07/22/16 08:31 07/22/16 08:31 07/22/16 08:31 07/22/16 08:31 Intake & Output 07/21/16 07/22/16 07/23/16 06:59 06:59 06:59 Weight 70.05 kg - Lochia Lochia Amount: Scant < 10 ml Lochia Color: Rubra/Red - Abdomen Description: Soft, Round Hernia Present: No Fundal Description: Firm, Midline Fundal Height: u/u - u/2 Objective-Diagnostic Laboratory: 07/22/16 06:40 07/22/16 06:40 WBC 16.9 H RBC 3.13 L Hgb 9.0 L Hct 27.1 L MCV 87 MCH 28.6 MCHC 33.0 RDW 13.6 Plt Count 176 Assessment and Plan(PN) - Assessment and Plan (1) Advanced maternal age (AMA) in Is this a current diagnosis for this admission?: Yes (2) Anemia Qualifiers: Anemia type: iron deficiency Is this a current diagnosis for this admission?: Yes (3) Vaginal delivery Is this a current diagnosis for this admission?: Yes - Time Spent with Patient Time with patient: Less than 15 minutes Medications reviewed and adjusted accordingly: Yes - Disposition Anticipated Discharge: Home Within: within 24 hours
[2016-07-22] MEDS: DOCUSATE SODIUM 100 MG CAPSULE PO SCH ×2 (09:34→17:48)
[2016-07-22] MEDS: FAMOTIDINE 20 MG TABLET PO SCH ×2 (09:34→21:46)
[2016-07-22] MEDS: SENNOSIDES/DOCUSATE 8.6-50 MG 1 EACH TABLET PO SCH (09:35)
[2016-07-22] MEDS: FERROUS SULFATE 325 MG TABLET PO SCH ×2 (09:35→17:48)
[2016-07-22] MEDS: NICOTINE 7 MG/24 HR PATCH.TD24 TD SCH (09:36)
[2016-07-22] MEDS: PRENATAL VITAMIN W-O CA NO5/FE FUMARATE/FA CAPSULE PO SCH (09:36)
[2016-07-22] MEDS: BUPRENORPHINE 8 MG SL SCH (09:37)
[2016-07-22] MEDS: METHADONE HCL 10 MG TABLET PO SCH ×2 (17:49→23:58)
[2016-07-23] MEDS: ACETAMINOPHEN WITH CODEINE #3 TABLET PO PRN ×2 (04:38→09:06)
[2016-07-23] MEDS: IBUPROFEN 800 MG TABLET PO SCH ×2 (06:04→13:04)
[2016-07-23] MEDS: METHADONE HCL 10 MG TABLET PO SCH ×2 (06:05→13:03)
--- NOTE | 2016-07-23 09:51 | PDOC PROGRESS REPORT ---
Subjective-OB Subjective: Post Delivery Day: 36 year old. Denies any needs at this time Doing well, ready to go home, bottle feeding, family at , goes to Dr. Monreal in [facility] [place] for Subutex, scant bleeding Physical Exam (OB) Vital Signs: Temp Pulse Resp BP Pulse Ox 97.4 F 63 16 112/65 100 07/23/16 09:04 07/23/16 09:04 07/23/16 09:04 07/23/16 09:04 07/23/16 09:04 - Lochia Lochia Amount: Scant < 10 ml Lochia Color: Rubra/Red - Abdomen Description: Soft, Round Hernia Present: No Fundal Description: Firm, Midline Fundal Height: u/u - u/2 Objective-Diagnostic Laboratory: 07/22/16 06:40 Assessment and Plan(PN) - Assessment and Plan (1) Advanced maternal age (AMA) in Is this a current diagnosis for this admission?: Yes (2) Anemia Qualifiers: Anemia type: iron deficiency Is this a current diagnosis for this admission?: Yes (3) Vaginal delivery Is this a current diagnosis for this admission?: Yes - Time Spent with Patient Time with patient: Less than 15 minutes Medications reviewed and adjusted accordingly: Yes - Disposition Anticipated Discharge: Home Within: Other - home today
--- NOTE | 2016-07-23 09:54 | PDOC DISCHARGE SUMMARY ---
Final Diagnosis Discharge Date: 07/23/16 - Final Diagnosis (1) Advanced maternal age (AMA) in Is this a current diagnosis for this admission?: Yes (2) Anemia Is this a current diagnosis for this admission?: Yes (3) Vaginal delivery Is this a current diagnosis for this admission?: Yes Discharge Data - Discharge Medication Home Medications: Buprenorphine HCl [Subutex 8 mg Sublingual Tablet] 1.5 tab PO PRN PRN 06/16/16 Multivit-Min/Iron Fum/Folic AC [Oqskf-Pjmfdjd-Axmxefoq Tablet] 1 tab PO DAILY Ferrous Sulfate [Feosol 325 mg Tablet] 325 mg PO BID #0 tablet 07/23/16 Methadone HCl [Dolophine 10 mg Tablet] 15 mg PO Q6 #0 tablet 07/23/16 Gestational Age: 40.2 Reason(s) for Admission: Induction of Labor, Medical Complications, Advanced Maternal Age Admission Note: Suboxone user Procedures: NST, Ultrasound Intrapartum Procedure(s): Spontaneous Vaginal Delivery Complication(s): Laceration-Vaginal Laceration-Degree: 1st - Diagnosis Test Laboratory: Temp Pulse Resp BP Pulse Ox 97.4 F 63 16 112/65 100 07/23/16 09:04 07/23/16 09:04 07/23/16 09:04 07/23/16 09:04 07/23/16 09:04 07/20/16 07/20/16 07/22/16 18:30 19:10 06:40 RBC 3.70 L 3.13 L Hgb 10.7 L 9.0 L Hct 32.0 L 27.1 L Urine Opiates Screen NEGATIVE - Discharge information/Instructions Discharge Activity: Activity As Tolerated, Balance Activity w/Rest, No Lifting Over 10 Pounds, No Lifting/Push/Pulling, Pelvic Rest, Slowly Increase Activity, No tub bath, Walk Frequently Discharge Diet: As Tolerated, Regular Disposition: HOME, SELF-CARE Follow up with: [facility] in: 4, Weeks
--- NOTE | 2016-07-23 09:57 | PDOC PROGRESS REPORT ---
Subjective-OB Subjective: Post Delivery Day: 36 year old. Denies any needs at this time Physical Exam (OB) Vital Signs: Temp Pulse Resp BP Pulse Ox 97.4 F 63 16 112/65 100 07/23/16 09:04 07/23/16 09:04 07/23/16 09:04 07/23/16 09:04 07/23/16 09:04 - Lochia Lochia Amount: Scant < 10 ml Lochia Color: Rubra/Red - Abdomen Description: Soft, Round Hernia Present: No Fundal Description: Firm, Midline Fundal Height: u/u - u/2 Objective-Diagnostic Laboratory: 07/22/16 06:40 Assessment and Plan(PN) - Assessment and Plan (1) Advanced maternal age (AMA) in Is this a current diagnosis for this admission?: Yes (2) Anemia Qualifiers: Anemia type: iron deficiency Is this a current diagnosis for this admission?: Yes (3) Vaginal delivery Is this a current diagnosis for this admission?: Yes - Time Spent with Patient Medications reviewed and adjusted accordingly: Yes - Disposition Anticipated Discharge: Home
[2016-07-23 10:10] VITALS: BP 112/60
[2016-07-23] MEDS: SENNOSIDES/DOCUSATE 8.6-50 MG 1 EACH TABLET PO SCH (11:04)
[2016-07-23] MEDS: DOCUSATE SODIUM 100 MG CAPSULE PO SCH (11:04)
[2016-07-23] MEDS: PRENATAL VITAMIN W-O CA NO5/FE FUMARATE/FA CAPSULE PO SCH (11:04)
[2016-07-23] MEDS: FAMOTIDINE 20 MG TABLET PO SCH (11:05)
[2016-07-23] MEDS: FERROUS SULFATE 325 MG TABLET PO SCH (11:05)
[2016-07-23] MEDS: NICOTINE 7 MG/24 HR PATCH.TD24 TD SCH (12:43)
== END 2016-07-23 15:16 | disposition home or self-care (01) | DRG 775 ==
LOC: LR 18:12 → 2S 07-21 17:55
PROVIDERS: ADMIT Obstetrics & Gynecology; ATTEND Obstetrics & Gynecology
PROC: 3E0P7GC Introduction of Other Therapeutic Substance into Female Reproductive, Via Natural or Artificial Opening (ICD-10-PCS; 2016-07-20)
PROC: 10E0XZZ Delivery of Products of Conception, External Approach (ICD-10-PCS; principal; 2016-07-21)
PROC: 0HQ9XZZ Repair Perineum Skin, External Approach (ICD-10-PCS; 2016-07-21)
PROC: 4A1HXCZ Monitoring of Products of Conception, Cardiac Rate, External Approach (ICD-10-PCS; 2016-07-21)
PROC: 3E033VJ Introduction of Other Hormone into Peripheral Vein, Percutaneous Approach (ICD-10-PCS; 2016-07-21)
DX: O43.123 Velamentous insertion of umbilical cord, third trimester (principal); O99.324 Drug use complicating childbirth; F11.20 Opioid dependence, uncomplicated; O70.0 First degree perineal laceration during delivery; O76 Abnormality in fetal heart rate and rhythm complicating labor and delivery; O32.6XX0 Maternal care for compound presentation, not applicable or unspecified; O77.0 Labor and delivery complicated by meconium in amniotic fluid; O99.334 Smoking (tobacco) complicating childbirth; F17.210 Nicotine dependence, cigarettes, uncomplicated; O99.344 Other mental disorders complicating childbirth; O99.02 Anemia complicating childbirth; D64.9 Anemia, unspecified; O99.52 Diseases of the respiratory system complicating childbirth; J45.909 Unspecified asthma, uncomplicated; F41.9 Anxiety disorder, unspecified; Z3A.40 40 weeks gestation of pregnancy; Z37.0 Single live birth
CPT/HCPCS: 36415; 80307; 81005; 85025; 85027; 86592; 86850; 86900; 86901; 88307; J2590; J3490

== ENCOUNTER 2016-11-18 09:08 | Day surgery (SDC) | payer MEDICAID ==
[2016-11-16 12:15] LABS: HEMATOCRIT 36.2 % (36.0-47.0); HEMOGLOBIN 12.1 g/dL (12.0-15.5); HGB HCT DIFFERENCE 0.1; MEAN CORPUSCULAR HEMOGLOBIN 29.1 pg (27.0-33.4); MEAN CORPUSCULAR HGB CONC 33.3 g/dL (32.0-36.0); MEAN CORPUSCULAR VOLUME 87 fl (80-97); RED BLOOD COUNT 4.14 10^6/uL (3.72-5.28); RED CELL DISTRIBUTION WIDTH 13.7 % (11.5-14.0); WHITE BLOOD COUNT 6.7 10^3/uL (4.0-10.5)
[2016-11-16 12:17] LABS: APPEARANCE,URINE CLOUDY; BILIRUBIN,URINE NEGATIVE (NEGATIVE); GLUCOSE, URINE NEGATIVE (NEGATIVE); KETONES,URINE NEGATIVE (NEGATIVE); LEUKOCYTE ESTERASE,URINE NEGATIVE (NEGATIVE); NITRITE,URINE NEGATIVE (NEGATIVE); PROTEIN,URINE 30 mg/dL (NEGATIVE); URINE SPECIFIC GRAVITY 1.011; UROBILINOGEN,URINE NEGATIVE mg/dL (<2.0)
[~2016-11-18 09:08] MED LIST: LACTATED RINGERS 1000 ML IV PRN; LIDOCAINE 0.5% INJ-PF (5 MG/ML) 50 ML SDV SUBCUT PRN; LIDOCAINE 1%/EPINEPHRINE INJ 20 ML VIAL ONE
[2016-11-18] MEDS ORDERED: SCOPOLAMINE HYDROBROMIDE 1.5 MG PATCH.TD72 ONE (09:48)
[2016-11-18] MEDS ORDERED: ALBUTEROL SULFATE 0.083% NEB 2.5 MG/3 ML AMPUL NEB ONE ×2 (09:49→10:30)
[2016-11-18] MEDS ORDERED: FAMOTIDINE INJ/PF 20 MG/2 ML SDV IV ONE (09:50)
[2016-11-18] MEDS ORDERED: MIDAZOLAM 2 MG/2 ML INJ ONE (10:08)
[2016-11-18] MEDS ORDERED: FENTANYL CITRATE INJ/PF 100 MCG/2 ML AMPUL ONE (10:08)
[2016-11-18] MEDS ORDERED: DEXAMETHASONE SOD PHOSPHATE INJ 4 MG/1 ML VIAL ONE (10:08)
[2016-11-18] MEDS ORDERED: ONDANSETRON HCL INJ/PF 4 MG/2 ML SDV ONE (10:08)
[2016-11-18] MEDS ORDERED: ACETAMINOPHEN 100 ML IV ONE (10:09)
[2016-11-18] MEDS ORDERED: MORPHINE SULFATE 10 MG/ML INJ ONE (10:09)
[2016-11-18] MEDS ORDERED: PROPOFOL INJ 200 MG/20 ML VIAL IV ONE (10:09)
[2016-11-18] MEDS ORDERED: IBUPROFEN INJ 800 MG/8 ML VIAL IV ONE (10:21)
[2016-11-18] MEDS ORDERED: SCOPOLAMINE HYDROBROMIDE 1.5 MG PATCH.TD72 TD ONE (10:30)
[2016-11-18] MEDS ORDERED: FENTANYL CITRATE INJ/PF 100 MCG/2 ML AMPUL IV PRN ×3 (11:14)
[2016-11-18] MEDS ORDERED: MEPERIDINE HCL/PF INJ 25 MG/1 ML DISP.SYRIN IV PRN (11:14)
[2016-11-18] MEDS ORDERED: DIPHENHYDRAMINE HCL 50 MG/ML VIAL IV PRN (11:14)
[2016-11-18] MEDS ORDERED: PROMETHAZINE HCL INJ 25 MG/1 ML VIAL IV PRN ×2 (11:14)
[2016-11-18] MEDS ORDERED: ONDANSETRON HCL INJ/PF 4 MG/2 ML SDV IV PRN (11:14)
[2016-11-18] MEDS ORDERED: SUCCINYLCHOLINE CHLORIDE INJ 200 MG/10 ML VIAL ONE (11:46)
[2016-11-18] MEDS ORDERED: RINGERS SOLUTION,LACTATED 1,000 ML IV PRN (12:04)
[2016-11-18] MEDS ORDERED: IBUPROFEN 800 MG TABLET PO PRN (12:04)
[2016-11-18] MEDS ORDERED: MORPHINE SULFATE 10 MG/ML INJ IM PRN (12:04)
[2016-11-18] MEDS ORDERED: OXYCODONE-ACETAMINOPHEN 5-325 MG TABLET PO PRN ×2 (12:05)
--- NOTE | 2016-11-18 12:38 | OPERATIVE REPORT E ---
Operative Report NAME: NATANAEL RAY : 1980 AGE: 36Y DATE OF SURGERY: 11/18/2016 ROOM: PREOPERATIVE DIAGNOSIS: Undesired fertility. POSTOPERATIVE DIAGNOSIS: Undesired fertility. OPERATION: Laparoscopic bilateral salpingectomy. SURGEON: MEEK ACEVEDO M.D. ANESTHESIA: Dr. Barone with general. FINDINGS: Normal uterus, tubes, and ovaries. COMPLICATIONS: None. ESTIMATED BLOOD LOSS: 10 mL. TISSUE REMOVED OR ALTERED: Bilateral fallopian tubes. PROCEDURE: Patient was taken to the operating room, prepared and draped in a normal sterile fashion in the dorsal lithotomy position under sterile conditions and in and out catheter was performed with approximately 10 mL of clear urine obtained. A sterile speculum was then placed in the vagina and the cervix was prepped with Betadine. The cervix was grasped on the anterior lip with a single tooth tenaculum. The uterus was then sounded to approximately 10 cm. A Hulka clamp was then placed through the cervix for uterine manipulation and the single tooth was removed. The sterile speculum was removed. Gloves were changed and attention was turned to the upper portion of the case where an umbilical skin incision was made with a scalpel and the peritoneal cavity was entered with a Veress needle. Peritoneal placement was confirmed with free flow of sterile water through the needle as well as a beginning abdominal pressure of 5 mmHg. The abdomen was then insufflated with approximately 2 liters of CO2 gas. Veress needle was removed and a 5 mm trocar was placed through the incision without difficulty and peritoneal cavity placement again was confirmed with a camera. Under direct visualization, two other 5 mm ports were placed, one in the right and left lower quadrant for instruments to be used. The bowel was swept away with a blunt probe as the patient was placed in steep Trendelenburg. Beginning with the left fallopian tube, this tube was grasped with an atraumatic grasper and a LigaSure device was applied following the mesosalpinx just below the fallopian tube until we reached the corpus of the uterus where the fallopian tube was then completely transected away and was removed through the assistance port. This was repeated on the right fallopian tube without difficulty and both fallopian tubes were then removed and passed off the field. Under direct visualization, the lower trocars were removed with good hemostasis noted at both sites. The camera was removed and the abdomen was then deflated through the umbilical port and the umbilical port was removed. The skin was closed with 4-0 Vicryl at all three sites and the sites were each injected with Lidocaine 1% with epinephrine. The patient tolerated the procedure well. Sponge, lap, and needle counts were correct x2 and the patient was taken to recovery in stable condition. DICTATING PHYSICIAN: MEEK ACEVEDO M.D. [id number] PHY#: [id number] ID: [id number] JOB#: [id number] ACCT: [id number] cc:[id number] ACEVEDO M.D. >
[2016-11-18 15:12] VITALS: BP 100/60
== END 2016-11-18 13:20 | disposition home or self-care (01) ==
LOC: OROUT 09:08
PROVIDERS: ATTEND Obstetrics & Gynecology
PROC: 0UT74ZZ Resection of Bilateral Fallopian Tubes, Percutaneous Endoscopic Approach (ICD-10-PCS; principal; 2016-11-18 11:00)
DX: Z30.2 Encounter for sterilization (principal); Q50.5 Embryonic cyst of broad ligament; F17.210 Nicotine dependence, cigarettes, uncomplicated; F32.9 Major depressive disorder, single episode, unspecified
CPT/HCPCS: 58661; 36415; 85027; 81005; 81025; 88302 ×2; 94640; J2250; J1100; J3010; J3490 ×2; J0330; J2405; J2704; S0028; J0131; J1741; 840; J2270

== ENCOUNTER 2018-01-09 13:46 | Emergency (ER) | payer MEDICAID ==
[2018-01-09] MEDS ORDERED: LIDOCAINE 4%/TETRACAINE 0.5%/EPI 0.18% 5 ML TOPICAL SOLN TOP ONE (14:47)
[2018-01-09] MEDS ORDERED: CLINDAMYCIN HCL 150 MG CAPSULE PO ONE (14:48)
[2018-01-09] MEDS ORDERED: ACETAMINOPHEN 325 MG TABLET PO ONE (14:49)
[2018-01-09] MEDS ORDERED: IBUPROFEN 400 MG TABLET PO ONE (14:49)
--- NOTE | 2018-01-09 15:13 | ER Document Report ---
HPI - HPI Patient complains to provider of: ? spide bite to back of neck Onset: Other - 2 days Quality of pain: Throbbing Pain Level: 3 Context: 38 yo female with ? spider bite nape of neck for 2 days. Now crusted. No hx MRSA. No fever. Painful. Associated Symptoms: None Exacerbated by: Movement Relieved by: Denies Similar symptoms previously: No Recently seen / treated by doctor: No - ROS ROS below otherwise negative: Yes Systems Reviewed and Negative: Yes All other systems reviewed and negative - REPRODUCTIVE Reproductive: REPORTS: : Past Medical History - General Information source: Patient - Social History Smoking Status: Current Every Day Smoker Chew tobacco use (# tins/day): No Frequency of alcohol use: None Drug Abuse: None Lives with: Spouse/Significant other Family History: Reviewed & Not Pertinent Patient has suicidal ideation: No Patient has homicidal ideation: No Surgical Hx: Negative - Immunizations Hx Diphtheria, Pertussis, Tetanus Vaccination: Yes Vertical Provider Document - CONSTITUTIONAL Agree With Documented VS: Yes General Appearance: Mild Distress - INFECTION CONTROL TRAVEL OUTSIDE OF THE [place] IN LAST 30 DAYS: No - DERM Notes: crusted 4mm lesion with surrounding inflamed tissue suspicious for spider bite Course - Vital Signs Vital signs: Temp Pulse Resp BP Pulse Ox 98.9 F 99 16 127/63 H 100 01/09/18 14:00 01/09/18 14:00 01/09/18 14:00 01/09/18 14:00 01/09/18 14:00 Procedures - Incision and Drainage Neck Time completed: 15:44 Type: Simple Anesthetic type: 1% Lidocaine mL's of anesthetic: 3 Blade size: 11 I&D procedure: Betadine prep applied, Other - 4 x 4 dressing Incision Method: Incision made by scalpel - devitalized tissue excised, corner of 4 x 4 packing Discharge - Discharge Clinical Impression: Abscess I&D, Tinea capitis Condition: Good Disposition: HOME, SELF-CARE Instructions: Abscess ([facility]), Acetaminophen, Clindamycin ([facility]), Ibuprofen ( General) ([facility]), Post Incision and Drainage, Warm Packs ([facility]) Additional Instructions: Wash the wound with soap and water daily Bacitracin dressing applied Have your doctor recheck the wound in 48 hours Return to the emergency room for any increased pain swelling fever pus Warm compress Try [id number] antifungal cream 3 times a day to the area without hair on your scalp. You may have to see a linseed oil refiner when you move Prescriptions: Ibuprofen [Motrin 600 mg Tablet] 600 mg PO Q8HP PRN #30 tablet PRN Reason: Clindamycin HCl [Cleocin 150 mg Capsule] 300 mg PO TID #42 capsule Referrals: NORMA PICKERING MD [Primary Care Provider] - 01/11/18 JAMES TRONCOSO DO [ACTIVE STAFF] - Follow up as needed
[2018-01-09 16:27] VITALS: BP 107/76
== END 2018-01-09 16:27 | disposition home or self-care (01) ==
LOC: ER 13:46
PROC: 0H94XZZ Drainage of Neck Skin, External Approach (ICD-10-PCS; principal; 2018-01-09)
DX: B35.0 Tinea barbae and tinea capitis (principal); F17.200 Nicotine dependence, unspecified, uncomplicated
CPT/HCPCS: 99283; 10060; J3490 ×4